=== PATIENT | female | born 1995 | race Caucasian/White ===

== ENCOUNTER 2021-02-23 09:02 | Emergency (ER) | payer OTHER, SELFPAY ==
[2021-02-23 09:08] VITALS: BP 149/92; PULSE 106; RESP 16; TEMP 36.7; O2SAT 100
--- NOTE | 2021-02-23 09:12 | ED.EAR ---
HPI - Ear Problem General Chief complaint: Ear Stated complaint: Ear Problems Time Seen by Provider: 02/23/21 09:13 Source: patient and RN notes reviewed Mode of arrival: ambulatory Limitations: no limitations History of Present Illness HPI Narrative: 25-year-old female who presents to [facility] with complaints of intermittent right ear pain for the past month, states pain has increased to bilateral ears with decreased hearing in the last 2 days. Patient states that she does have some sinus stuffiness but denies any sore throat, cough ,fevers or any sinus drainage. Patient has not taken any OTC medication for her complaints. Patient does admit to swimming in the past month 3-4 times. MD Complaint: ear pain and decreased hearing Location: bilateral Duration: intermittent Severity: moderate Discharge from ear: Reports no Associated symptoms ear: decreased hearing Treatment prior to arrival: none Related Data Home Medications Medication Instructions Recorded Confirmed norethindrone-e.estradiol-iron tablet 02/23/21 [Aurovela Fe 1.5/30 (28)] Allergies Allergy/AdvReac Type Severity Reaction Status Date / Time No Known Allergies Allergy Verified 02/23/21 09:12 Review of Systems Review of Systems: Narrative: CONSTITUTIONAL: Denies fever, chills, or sweats. EYES: Denies visual changes, redness, or discharge. ENT: Denies rhinorrhea,reports sinus stuffiness,no acute congestion or sore throat,positive for bilateral otalgia. CARDIOVASCULAR: Denies chest pain, palpitations, or edema. RESPIRATORY: Denies cough or dyspnea. GASTROINTESTINAL: Denies abdominal pain, nausea, vomiting, or diarrhea. GENITOURINARY: Denies dysuria or hematuria. SKIN: Denies rash or itching. MUSCULOSKELETAL: Denies back pain, joint pain, or myalgia. NEUROLOGIC: Denies headache, numbness, or weakness. PSYCHIATRIC: Positive for history of anxiety or depression. All systems reviewed & are unremarkable except as noted in HPI and below PMFSH Past Medical History Medical History (Updated 02/23/21 @ 13:37 by Kim Rodriguez NP) ADD (attention deficit disorder) Anxiety with depression Surgical History Surgical History (Updated 02/23/21 @ 13:36 by Kim Rodriguez NP) No history of previous surgery Family History Family History (Updated 02/23/21 @ 13:38 by Kim Rodriguez NP) Grandparent Acute myocardial infarction Mother Hypertension Social History Social History (Updated 02/23/21 @ 13:37 by Kim Rodriguez NP) Smoking status: Never smoker Alcohol intake: current Alcohol use details: social Substance use: never Living arrangements: with family Gender identity (if verbalized by the patient): Female Comments At time of signature, agree with nursing past medical, surgical, social and family history. There is no relevant family history pertinent to the presenting complaint Exam Narrative: Exam Narrative: GENERAL: Well-appearing, well-nourished, and in no acute distress. HEAD: Normocephalic, atraumatic. EYES: PERRLA and EOMI. ENT: Nares clear, no rhinorrhea or epistaxis. Mucous membranes moist.TM's noted to be covered by ear wax, cleaning with solution of peroxide and warm water completed with TM's normal but right ear canal noted to have redness, swelling and irritation. Throat pink with no lesions or exudates noted no tonsil enlargement. NECK: Supple. no lymphadenopathy CHEST: Clear to auscultation. No respiratory distress. SAO2 100% on room air HEART: Regular rate and rhythm. No murmur heard. Normal peripheral pulses. ABDOMEN: Soft, nontender, nondistended, normal active bowel sounds. EXTREMITIES: Normal range of motion. No edema. SKIN: Warm, dry, no rash. NEURO: No focal deficits. Alert and oriented x3. Course Vital Signs Vital signs: Vital Signs Temperature 36.7 C 02/23/21 09:08 Pulse Rate 106 H 02/23/21 09:08 Respiratory Rate 16 02/23/21 09:08 Blood Pressure 149/92 H 02/23/21 09:08 Pulse
== END 2021-02-23 09:42 | disposition home or self-care (01) ==
PROVIDERS: Emergency Provider Registered Nurse; PCP Physician Assistant
DX: H60.311 Diffuse otitis externa, right ear (principal); H61.23 Impacted cerumen, bilateral
CPT/HCPCS: 69209; 99203; G0463

== ENCOUNTER 2021-04-02 13:40 | Emergency (ER) | payer OTHER, SELFPAY ==
[2021-04-02 13:47] VITALS: BP 138/86; PULSE 96; RESP 14; TEMP 36.6; O2SAT 100
--- NOTE | 2021-04-02 14:34 | ED.URI ---
HPI - URI/Sore Throat General Chief Complaint: Upper Respiratory Infection Stated Complaint: Sore Throat, Fatigue and congestion Time Seen by Provider: 04/02/21 14:34 Source: patient, RN notes reviewed and old records reviewed Mode of arrival: ambulatory Limitations: no limitations History of Present Illness HPI Narrative: 25 year old female who presents to [facility] care with complaint of sore throat, fatigue, right ear fullness, head congestion and low grade fever since Wednesday 2 days. Patient reports that she has been taking Mucinex DM for her symptoms without resolution and has had both of her COVID vaccinations. She states that throat is painful especially with swallowing, rates her pain as 6/10. Patient reports also she has has positive exposure to strep at work from co-worker. MD elicited complaint: sore throat, rhinorrhea and other (right ear ) Related Data Home Medications Medication Instructions Recorded Confirmed norethindrone-e.estradiol-iron tablet 02/23/21 [Aurovela Fe 1.5/30 (28)] Allergies Allergy/AdvReac Type Severity Reaction Status Date / Time No Known Allergies Allergy Verified 02/23/21 09:12 Review of Systems Review of Systems: CONSTITUTIONAL: Reports low grade fever, chills, or sweats.afebrile at triage EYES: Denies visual changes, redness, or discharge. ENT: Positive rhinorrhea, congestion, sore throat, right ear fullness. CARDIOVASCULAR: Denies chest pain, palpitations, or edema. RESPIRATORY: Denies cough or dyspnea. GASTROINTESTINAL: Denies abdominal pain, nausea, vomiting, or diarrhea. GENITOURINARY: Denies dysuria or hematuria. SKIN: Denies rash or itching. MUSCULOSKELETAL: Denies back pain, joint pain, or myalgia. NEUROLOGIC: Denies headache, numbness, or weakness. PSYCHIATRIC: Positive anxiety or depression. All systems reviewed & are unremarkable except as noted in HPI and below [facility] Past Medical History Medical History (Updated 04/07/21 @ 09:45 by Kim Rodriguez NP) ADD (attention deficit disorder) Anxiety with depression Fracture of both wrists Surgical History Surgical History No history of previous surgery Family History Family History Grandparent Acute myocardial infarction Mother Hypertension Social History Social History Smoking status: Never smoker Alcohol intake: current Alcohol use details: social Substance use: never Gender identity (if verbalized by the patient): Female Comments At time of signature, agree with nursing past medical, surgical, social and family history. There is no relevant family history pertinent to the presenting complaint Exam Narrative: GENERAL: Well-appearing, well-nourished, and in no acute distress. HEAD: Normocephalic, atraumatic. EYES: PERRLA and EOMI. ENT: Nares with mild redness, clear rhinorrhea no epistaxis. Mucous membranes moist.TM's normal with good light reflex, throat red with no lesions or exudates no acute tonsil swelling,post nasal drainage NECK: Supple.no lymphadenopathy CHEST: Clear to auscultation. No respiratory distress.SAO2 100% on room air HEART: Regular rate and rhythm. No murmur heard. Normal peripheral pulses. ABDOMEN: Soft, nontender, nondistended, normal active bowel sounds. EXTREMITIES: Normal range of motion. No edema. SKIN: Warm, dry, no rash. NEURO: No focal deficits. Alert and oriented x3. Course Vital Signs Vital signs: Vital Signs Temperature 36.6 C 04/02/21 13:47 Pulse Rate 96 04/02/21 13:47 Respiratory Rate 14 04/02/21 13:47 Blood Pressure 138/86 04/02/21 13:47 Pulse Oximetry 100 04/02/21 13:47 Temperature 36.6 C 04/02/21 13:47 Pulse Rate 96 04/02/21 13:47 Respiratory Rate 14 04/02/21 13:47 Blood Pressure 138/86 04/02/21 13:47 Pulse Oximetry 100 04/02/21 13:47 MDM - URI
== END 2021-04-02 14:58 | disposition home or self-care (01) ==
PROVIDERS: Emergency Provider Registered Nurse; PCP Physician Assistant
DX: J02.9 Acute pharyngitis, unspecified (principal); J06.9 Acute upper respiratory infection, unspecified
CPT/HCPCS: 87880; 99213; G0463

== ENCOUNTER 2024-10-17 17:14 | Emergency (ER) | payer OTHER, SELFPAY ==
[2024-10-17 17:33] VITALS: BP 140/73; PULSE 96; RESP 16; TEMP 36.2; O2SAT 98
[2024-10-17 17:49] LABS: EDCOVIDSCREEN Negative (Negative); EDINFLUASCREEN Negative (Negative); EDINFLUBSCREEN Negative (Negative)
--- NOTE | 2024-10-17 18:13 | ED_ITS ---
HPI - General Adult General Chief complaint: Upper Respiratory Infection Stated complaint: Sinus Problem/Cough Related Data Allergies Allergy/AdvReac Type Severity Reaction Status Date / Time No Known Allergies Allergy Verified 02/23/21 09:12 [facility] Past Medical History Medical History (Updated 04/07/21 @ 09:45 by Kim Rodriguez NP) Fracture of both wrists ADD (attention deficit disorder) Anxiety with depression Surgical History Surgical History No history of previous surgery Family History Family History Grandparent Acute myocardial infarction Mother Hypertension Social History Social History Smoking status: Never smoker Alcohol intake: current Alcohol use details: social Substance use: never Living arrangements: with family Gender identity (if verbalized by the patient): Female Course Vital Signs Vital signs: Vital Signs Temperature 36.2 C L 10/17/24 17:33 Pulse Rate 96 10/17/24 17:33 Respiratory Rate 16 10/17/24 17:33 Blood Pressure 140/73 10/17/24 17:33 Pulse Oximetry 98 10/17/24 17:33 Oxygen Delivery Room Air 10/17/24 17:33 Temperature 36.2 C L 10/17/24 17:33 Pulse Rate 96 10/17/24 17:33 Respiratory Rate 16 10/17/24 17:33 Blood Pressure 140/73 10/17/24 17:33 Pulse Oximetry 98 10/17/24 17:33 Oxygen Delivery Room Air 10/17/24 17:33 Medical Decision Making Vital Signs Vital Signs: Vital Signs Temperature 36.2 C L 10/17/24 17:33 Pulse Rate 96 10/17/24 17:33 Respiratory Rate 16 10/17/24 17:33 Blood Pressure 140/73 10/17/24 17:33 Pulse Oximetry 98 10/17/24 17:33 Oxygen Delivery Room Air 10/17/24 17:33 Temperature 36.2 C L 10/17/24 17:33 Pulse Rate 96 10/17/24 17:33 Respiratory Rate 16 10/17/24 17:33 Blood Pressure 140/73 10/17/24 17:33 Pulse Oximetry 98 10/17/24 17:33 Oxygen Delivery Room Air 10/17/24 17:33 Lab Data Labs: Lab Results 10/17/24 Range/Units 17:47 POC Influenza A Ag Negative (Negative) POC Influenza B Ag Negative (Negative) POC SARS CoV-2 Ag Negative (Negative) Discharge Plan Discharge Patient Language: Yoruba Follow-up/Referrals: PHYSICIAN NOT ON STAFF,NONSTAFF [Primary Care Provider] -
--- OUTSIDE RECORDS SUMMARY | 2024-10-17 18:56 | XMS_ITS | Clinical Summary ---
Author Organization [facility] [address] Address [address] [place] [address] Phone Care Team Providers Care X Ray Technologist Name Role Phone No, Physician Primary Care Provider [phone] Allergies No known active allergies Medications albuterol HFA (PROVENTIL HFA,VENTOLIN HFA,PROAIR HFA) 90 mcg/actuation inhaler INHALE 2 PUFFS BY MOUTH EVERY 4 HOURS NEEDED FOR COUGH 06/15/2019 Active Active Problems Problem Noted Date Diagnosed Date ADD (attention deficit disorder) 03/01/2017 Overview (05/26/2024): Previously managed by psych. Discontinued Concerta around 2019. Anxiety disorder 03/01/2017 Overview (05/26/2024): Zoloft 100 mg. Discontinued around 2019. Mild asthma 01/06/2014 Overview (11/27/2016): Mild asthma Estimated Date of Delivery Comme nts Yes 12/18/2024 Based on last me nstrual period of 03/13/2024 (Exact Date) Immunizations Immunization Administration Dates Next Due DTaP 12/30/2001,08/03/1997,1996 ,1996 Hep B Vaccine 1996,1996,1996 Hib (HbOC) 08/03/1997,1996,1996 ,1996 IPV 12/30/2001,1996,1996 ,1996 MMR 12/30/2001,08/03/1997 Surgical History Surgery Date Site/Laterality Comments NO PAST SURGERIES Medical History Medical History Date Comments Chlamydia 2020 Trichomonal vaginitis 2020 Family History Medical History Relation Name Comments Heart attack Maternal Grandfather Hyperlipidemia Mother Hyperlipidemi a; Mental illness Mother Mental Illnes s -; Breast cancer Other 1 Cancer -breast ; Melanoma Other 2 Cancer -melanom a; Relation Name Status Comments Maternal Grandfather Mother Other 1 Other 2 Social History Tobacco Use Types Packs/Day Years Used Date Smoking Tobacco: Never Smokeless Tobacco: Never Tobacco Cessation:Counseling Given: Yes Alcohol Use Standard Drinks/Week Comments No 0 (1 standard drink = 0.6 oz pur e alcohol) Overall Financial Resource Strain (CARDIA) Answe r Date Recorded How hard is it for you to pa y for the very basics like food, housing, medical care, and heating? Somewhat hard 06/21/2024 Hunger Vital Sign Answer Date Recorded Within the past 12 months, y ou worried that your food would run out before you got the money to buy more. Never true 06/21/20 24 Within the past 12 months, t he food you bought just didn't last and you didn't have money to get more. Never true 06/21/2024 PRAPARE - Transportation Answer Date Re corded In the past 12 months, has l ack of transportation kept you from medical appointments or from getting medications? No 05/25 In the past 12 months, has l ack of transportation kept you from meetings, work, or from getting things needed for daily living? No 06/21/2024 Housing Stability Vital Sign Answer Osmar e Recorded In the last 12 months, was t here a time when you were not able to pay the mortgage or rent on time? No 06/21/2024 In the past 12 months, how m any times have you moved where you were living? 1 06/21/2024 At any time in the past 12 m [facility], were you homeless or living in a fci (including now)? 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 Not on file Not on file Not on file Obstetrics History Para Term AB IAB SAB Ectopic Multiple Livin g Live Births 2 0 0 0 1 0 1 0 0 0 0 Date Outcome GA Total Labor Labor/2nd/3rd Weight Sex Type Anes PTL Viri A1 A5 Name Clin 01/2024 SAB 6w0d SAB Current Summary Episode Dates Number of Fetuses Estimated Date of Delivery 05/26/2024 - Present (10/17/2024) 12/18/2024 (set by Maggie Christianson MD on 05/26/2024 based on Last Menstrual Period on 03/13/2024 (Exact Date)) Dating Summary Based On NEETA GA Diff Last Menstrual Period on 03/13/2024 (Exact Date) 12/18/2024 Working Ultrasound on 05/26/2024 12/18/2024 Same GA:10w4d Vitals Pregravid Weight Height TWG (As of 10/17/2024) Pregrav id BMI 86.6 kg (191 lb) 158.2 cm (5' 2.3 ) 0.454 kg (1 lb) 34 .62 Date GA Fund Present FHR Mvmt BP Weight Edema Alb Glu Ket Dil/ Eff/Sta 4 10w4d 118/70 86.6 kg (191 lb) 0// Notes Progress Notes - Routine Pre alta - 06/21/2024 - GA:14w2d 06/21/2024 - 14w2d - Maggie Christianson MD Reviewed OB labs and Pap which did show possible BV. Today reports she has noticed some discharge. Rx sent for flagyl. Nausea has improved. Feels rare cramping across pelvis. No VB. Precautions given. Progress Notes - Initial Pre alta - 05/26/2024 - GA:10w4d 05/26/2024 - 10w4d - Maggie Christianson MD New OB -- NEETA 12/18 by definite LMP c/w sono today. Nausea increased the last 1-2 weeks. Advised frequent small meals and B6/unisom. History of anxiety and ADD, previously managed by psych and off of medication since around 2019. Reports stable mood overall, some nervousness with h/o early miscarriage last January. Precautions given. Will monitor. OB labs ordered with Pap, GC/CT. Last Filed Vital Signs Vital Sign Reading Time Taken Comments Blood Pressure 132/78 06/21/2024 11:24 AM CDT Pulse 97 04/13/2023 10:27 AM CDT Temperature 36.6 C (97.8 F) 04/13/2023 10:27 AM CDT Respiratory Rate 16 04/13/2023 10:27 AM CDT Oxygen Saturation 98% 04/13/2023 10:27 AM CDT Inhaled Oxygen Concentration - - Weight 87.1 kg (192 lb) 06/21/2024 11:24 AM CDT Height 158.2 cm (5' 2.3 ) 05/26/2024 1:36 PM CDT Body Mass Index 34.78 05/26/2024 1:36 PM CDT Plan of Treatment Health Maintenance Due Date Last Done Comments Depression Screening 1996 Varicella Vaccines (2 of 2 - 2-dose childhood series) 03/24/2002 12/30/2001 Pneumococcal vaccine <65 (1 of 2 - PCV) 2015 Regular Well Visit/Exam 18-64 04/06/2023, 10/17/2020, 06/30/2019, Additional history exists Influenza Vaccine (#1) 2024 , 06/20/2018, 06/22/2012, Additional history exists Cervical Cancer Screening 05/26/20252023, 10/17/2020, 06/28/2018 DTaP/Tdap/Td Vaccine (8 - Td or Tdap) 06/20/2028 06/20/2018, 06/21/2008, 12/30/2001, Additional history exists Hepatitis B Screening Completed 1996 , 1996, 1996, Additional history exists HPV Vaccines Completed 04/29/2011, 09/2010, 10/22/2010 Hepatitis C Screening Completed 05/26/2024 Procedures Procedure Name Priority Date/Time Associated Diagnosis Comments HEPATITIS C ANTIBODY Routine 05/26/2024 2:18 PM CDT Encounter for supervision of other normal , first trimester 10 weeks gestation of PAP WITH REFLEX TO HIGH RISK HPV Routine 05/26/2024 11:36 AM CDT Screening for malignant neoplasm of cervix care, subsequent , first trimester from Last 3 Months or Most Recently Relevant to Health Maintenance Results * Hepatitis C antibody Blood (05/26/2024 2:18 PM CDT) Hep C Ab Nonreactive Nonreactive Comment: Interpretive Data Nonreactive: Antibodies to HCV not detected. Does NOT exclude the possibility of recent exposure to HCV. Equivocal: Equivocal for HCV antibodies. Supplemental molecular testing will be automatically performed to determine infection status in accordance with current CDC screening recommendations. Reactive: Positive for HCV antibodies. This may represent current or past HCV infection. Supplemental molecular testing will be automatically performed to determine current infection status in accordance with current CDC screening recommendations. Interpretive data was last revised on 2019. Testing performed by: [facility], [address] [place] [address]., [id number] Blood 05/26/2024 2:18 PM CDT 05/26/2024 5:32 PM CDT Maggie Christianson MD LAB MICROBIOLOGY - NERAL ORDERABLES Final Result [address] Department [place] [address] * Pap with reflex to High Risk HPV and Genotyping (Cytology Component) (05/26/2024 11:36 AM CDT) Thin prep (Pap test) 05/26/2024 11:36 AM CDT 05/26/2024 11:36 AM CDT Narrative PATHOLOGY CH - 05/30/2024 9:42 AM CDT [facility] Department of Pathology [address] [place], [place] [id number] Final Report Note to Patients: This report may contain a detailed description of human tissue sent by a health care provider to the laboratory for pathologic evaluation. The content of this report is essential for diagnosis and may provide important critical findings. This information may be unfamiliar to patients to review without a medical professional present. It is advised that the patient review this report in the presence of a health care provider who can answer questions and explain the details. Patient Name: BETH MEYER Address: [address] [place] [address]- Gender: F : 1995 (Age: 29) Service: Location: N : [id number] Hospital #: [id number] Patient Type: SPECIMEN Taken: 05/26/2024 Received: 05/26/2024 Accessioned:: 05/29/2024 Reported: 05/30/2024 Physician(s): MD Maggie Gomez MD Diagnosis: SOURCE OF SPECIMEN Imaged Thinprep Pap Test w/ Reflex HPV - Cad Design Engineer Cytologic Material: STATEMENT OF ADEQUACY - Specimen satisfactory for interpretation; endocervical/transformation zone component absent or insufficient GENERAL CATEGORIZATION: - Negative for intraepithelial lesion or malignancy INTERPRETATION: - Predominance of coccobacilli consistent with shift in vaginal mariel. Possible bacterial vaginosis SINGH Jimenez(ASCP) Report Electronically Reviewed and Signed Out By SINGH Jimenez(ASCP) 05/30/2024 09:42:54Specimen(s) Received: A: Imaged Thinprep Pap Test w/ Reflex HPV - Cad Design Engineer Cytologic Material Clinical History: Last Menstrual Period: 03/13/24 Menstrual History: Previous Negative Pap The Pap test is a screening test used to aid in the detection of cervical cancer and its precursors. It should not be the sole means by which malignant and premalignant lesions are diagnosed. Both false negative and false positive results may occur. It also has poor sensitivity for the detection of endometrial lesions and should not be used to evaluate suspected endometrial abnormalities. For these reasons it is most important to obtain Pap tests at regular intervals. The performance characteristics of some immunohistochemical stains, fluorescence in-situ hybridization tests and immunophenotyping by flow cytometry cited in this report (if any) were determined by the Surgical Pathology Department at [facility] as part of an ongoing automotive quality manager program and in compliance with federally mandated regulations drawn from the Clinical Laboratory Improvement Act of 1988 (CLIA '88). Some of these tests rely on the use of analyte specific reagents and are subject to specific labeling requirements by the US Food and Drug Administration. Such diagnostic tests may only be performed in a facility that is certified by the Department of Health and Human Services as a high complexity laboratory under CLIA '88. The FDA has determined that such clearance or approval is not necessary. This test is used for clinical purposes. It should not be regarded as investigational or for research. Nevertheless, federal rules concerning the medical use of analyte specific reagents require that the following disclaimer be attached to the report: This test was developed and its performance characteristics determined by the Surgical Pathology Department [facility]. It has not been cleared or approved by the U. S. Food and Drug Administration. Maggie Christianson MD LAB CYTOLOGY ORDERABL ES Final Result PATHOLOGY [id number] [place] [address] from Last 3 Months or Most Recently Relevant to Health Maintenance Insurance [facility] Care Teams X Ray Technologist Relationship Specialty Start Date End Date No, Physician PCP - General 06/30/19
--- OUTSIDE RECORDS SUMMARY | 2024-10-17 18:56 | XMS_ITS | Data Portability ---
Author Organization [facility] [place] Address [address] [place] [place] [address] Assessment No assessment recorded. Plan of Treatment Reminders Order Date Submit Date Provider Last Modified By Organization Details Last Modified Time Details Appointments U/S OB GROWTH 2024 09:30A M ULTRASOUND Not available Not available Not available OB ROUTINE 2024 10:00A M YURI DAMIAN MD Not available Not available Not available Lab None recorde d. Referral None recorde d. Procedures None recorde d. Surgeries None recorde d. Imaging US, obstetr ic, follow- up 2024 025 [email or web address] [place], [address], [place], [address], 08/29/2024 13:24:13 US, obstetr ic, 2nd or 3rd trimest er 2023 024 [email or web address] [place] [facility] [address], [place], [address], 08/01/2024 18:03:42 Medication Orders None recorde d. Patient TargetsNo targets recorded. Patient InstructionsNo instructions recorded. Reason for Referral None Reported. Results Created Date Observation Date Name Description Value Unit Range Abnormal Flag Note LastModifiedBy Organization Detail LastModifiedTime 07/04/20 24 07/04/2024 CULTU RE: URINE result report SEE RESULT S BELOW Test: Cultu re: Urine Speci men Sourc e: Urine - Clean Catch Speci men Type: Urine Speci men Date: 07/04 1547 Resul t Date: 07/06 0010 Resul t Statu s: Final resul t Abnor mal: No Resul ting Lab: [facility] [address] [facility] [address] Tel: CULTU RE ----- ----- ----- --- Cultu re resul t (>=3 organ isms prese nt) indic ates possi ble conta minat ion. Repea t cultu re if sympt oms indic ate. Not Available [facility] (Lab) [address], [place], [address], 07/06/2024 01:15:40 07/04/20 24 07/04/2024 drug scree n, urine Amphetamines : negati ve Not Available [place] [address], [place], [address], 07/04/2024 16:45:54 07/04/20 24 07/04/2024 drug scree n, urine Cannabinoids : negati ve Not Available [place] [address], [place], [address], 07/04/2024 16:45:54 07/04/20 24 07/04/2024 drug scree n, urine Cocaine: negati ve Not Available [place] [address], [place], [address], 07/04/2024 16:45:54 07/04/20 24 07/04/2024 drug scree n, urine Opiates: negati ve Not Available [place] [address], [place], [address], 07/04/2024 16:45:54 07/04/20 24 07/04/2024 drug scree n, urine Phenocyclidi ne: negati ve Not Available [place] [address], [place], [address], 07/04/2024 16:45:54 11/12/07/04/2024 drug scree n, urine Barbiturates : negati ve Not Available [place] [address], [place], [address], 07/04/2024 16:45:54 07/04/20 24 07/04/2024 drug scree n, urine Benzodiazepi ruben: negati ve Not Available [place] [address], [place], [address], 07/04/2024 16:45:54 07/04/20 24 07/04/2024 drug scree n, urine Ethanol: negati ve Not Available [place] [address], [place], [address], 07/04/2024 16:45:54 07/04/20 24 07/04/2024 drug scree n, urine Hallucinogen s: negati ve Not Available [place] [address], [place], [address], 07/04/2024 16:45:54 07/04/20 24 07/04/2024 drug scree n, urine Inhalants: negati ve Not Available [place] [address], [place], [address], 07/04/2024 16:45:54 07/04/20 24 07/04/2024 drug scree n, urine Anabolic Steroids: negati ve Not Available [place] [address], [place], [address], 07/04/2024 16:45:54 09/26/19 25 09/26/2024 HEMAT OCRIT (HCT) HCT 38.8 % (based on docume nted legal sex) 34.0-4 5.0 Not Available [facility] (Lab) [address], [place], [address], 09/27/2024 11:27:03 09/26/19 25 09/26/2024 HEMOG LOBIN (HGB) HGB 12.1 g/dL (based on docume nted legal sex) 11.6-1 5.4 Not Available [facility] (Lab) [address], [place], [address], 09/27/2024 11:27:04 09/26/19 25 09/26/2024 GTT - GESTA HERNÁN L SCREE N, ACOG OB glucose, 1 hour screen 169 mg/dL 70-135 high Not Available [facility] (Lab) [address], [place], [address], 09/27/2024 11:27:05 09/26/19 25 09/26/2024 HIV 1/2 ANTIG EN/AN TIBOD Y, REFLE X CONFI RMATI ON HIV antigen/anti body Nonrea ctive nonrea ctive HIV-1 antig en and HIV-1 /HIV- 2 antib odies were not detec olvin. No labor atory evide nce of HIV infec tion. Not Available [facility] (Lab) [address], [place], [address], 09/27/2024 11:27:05 09/26/19 25 09/26/2024 RPR SCREE N, REFLE X TITER /CONF IRMAT ION RPR screen Nonrea ctive nonrea ctive Not Available [facility] (Lab) [address] [place], [address], 09/27/2024 11:27:06 10/10/19 25 10/10/2024 GTT - GESTA HERNÁN L, 3 HOUR, ACOG glucose, fasting acog 79 mg/dL 70-94 Not Available [facility] (Lab) [address] [place], [address], 10/11/2024 02:12:48 10/10/19 25 10/10/2024 GTT - GESTA HERNÁN L, 3 HOUR, ACOG glucose, 1 hour acog 195 mg/dL 70-179 high Not Available [facility] (Lab) [address], [place], [address], 10/11/2024 02:12:48 10/10/19 25 10/10/2024 GTT - GESTA HERNÁN L, 3 HOUR, ACOG glucose, 2 hour acog 131 mg/dL 70-154 Not Available [facility] (Lab) [address], [place], [address], 10/11/2024 02:12:48 10/10/19 25 10/10/2024 GTT - GESTA HERNÁN L, 3 HOUR, ACOG glucose, 3 hour acog 92 mg/dL 70-139 Not Available [facility] (Lab) [address], [place], [address], 10/11/2024 02:12:48 07/04/20 24 07/04/2024 US, obste tric, limit ed No observ ation record ed. [email or web address] [place] [address], [place], [address], 07/04/2024 16:43:24 07/04/20 24 07/04/2024 US, obste tric, limit ed No observ ation record ed. rodrick Mares [address], [place], [address], 07/04/2024 23:13:55 08/01/20 24 08/01/2024 US, obste tric, 2nd or 3rd trime ster No observ ation record ed. [email or web address] [place] [address], [place], [address], 08/01/2024 12:01:31 08/01/20 24 08/01/2024 US, obste tric, 2nd or 3rd trime ster No observ ation record ed. rodrick Mares [address], [place], [address], 08/01/2024 22:44:58 08/29/19 25 08/29/2024 imagi ng/di agnos tic resul t No observ ation record ed. KIMI Suzan [address], [place], [address], 08/29/2024 14:24:02 08/29/19 25 08/29/2024 US, obste tric, follo w-up No observ ation record ed. [email or web address] [place] [address], [place], [address], 08/29/2024 13:18:01 Result Notes None recorded. Problems Name Problem SNOMED Code Status Onset Date Resolution Date Notes Provider Name and Address Organization Details Recorded Time 45579314 Active 024 Rosie hicks [facility] 15:54:04 Problem Notes None recorded. Procedures Surgical History Date Name Laterality Status Provider Name and Address Organization Details Recorded Time 05/26/2024 Date of Last Pap Smear completed Rosie Horn [facility] 07/04/2024 15:47:59 Imaging Results Imaging Date Name Status LastModified by Organiz ation Details LastModified Time 07/04/2024 US, obstetric, limited completed [email or web address] [place] [address], [place], [address], 07/04/2024 16:43:24 07/04/2024 US, obstetric, limited completed rodrick De Paze [address], [place], [address], 07/04/2024 23:13:55 08/01/2024 US, obstetric, 2nd or 3rd trimester completed [email or web address] [place] [address], [place], [address], 08/01/2024 12:01:31 08/01/2024 US, obstetric, 2nd or 3rd trimester completed rodrick Suzan [address], [place], [address], 08/01/2024 22:44:58 08/29/2024 imaging/diagno stic result completed KIMI Mares [address] [facility], [place], [address], 08/29/2024 14:24:02 08/29/2024 US, obstetric, follow-up completed [email or web address] [place] [address], [place], [address], 08/29/2024 13:18:01 Procedure Notes None recorded. Medical Equipment None Reported. Allergies No known drug allergies Medications Name Sig Start Date Stop Date Status Note LastModified by Organization Details LastModified Time acyclovir 800 mg tablet active Not Available Not Available Not Available albuterol sulfate HFA 90 mcg/actuati on aerosol inhaler Inhale 2 puffs every 4 hours by inhalation route. active Not Available Not Available No t Available Vitals Date Recorded Body height Body mass index (BMI) Body weight Systolic blood pressure Diastolic blood pressure Provider Name and Address Organization Details Last Updated DateTime 08/01/2024 157.48 cm 35.3 kg/m2 50432.32 741 g 132 mm[Hg] 77 mm[Hg] [facility] 4 12:04:16 Date Recorded Body height Body mass index (BMI) Body weight Systolic blood pressure Diastolic blood pressure Provider Name and Address Organization Details Last Updated DateTime 08/29/2024 157.48 cm 35.7 kg/m2 80361.51 215 g 140 mm[Hg] 79 mm[Hg] [facility] 5 12:41:19 Date Recorded Body height Body mass index (BMI) Body weight Systolic blood pressure Diastolic blood pressure Provider Name and Address Organization Details Last Updated DateTime 09/26/2024 157.48 cm 36.6 kg/m2 47030.47 g 132 mm[Hg] 86 mm[Hg] [facility] 5 11:25:28 Date Recorded Body weight Systolic blood pressure Diastolic blood pressure Provider Name and Address Organization Details Last Updated DateTime 10/10/2024 21023.8816 3 g 139 mm[Hg] 82 mm[Hg] Florence Antwan [facility] 10/10/2024 10:17:16 Social History Question Answer Notes LastModified by Organizat ion Details LastModified Time Tobacco Smoking Status Never Smoker Rosie Horn kurt, [facility] 07/04/2024 15:50:23 Are You Blind Or Do You Have Difficulty Seeing? No [email or web address] Information n ot available 07/04/2024 In The 14 Days Before Symptom Onset, Have You Had Close Contact With A Laboratory-confirm ed COVID-19 While That Case Was Ill? No [email or web address] Information n ot available 07/04/2024 In The 14 Days Before Symptom Onset, Have You Had Close Contact With A Person Who Is Under Investigation For COVID-19 While That Person Was Ill? No [email or web address] Information not available 07/04/2024 Have You Been To An Area Known To Be High Risk For COVID-19? No [email or web address] Information not available 07/04/2024 Are You Deaf Or Do You Have Serious Difficulty Hearing? No [email or web address] Information not available 07/04/2024 Do You Use Your Seat Belt Or Car Seat Routinely? Yes [email or web address] Information not available 07/04/2024 Are You Sexually Active? Yes [email or web address] Information not available 07/04/2024 Do You Have Smoke And Carbon Monoxide Detectors In Your Home? Yes [email or web address] Information not available 07/04/2024 Do You Use Any Illicit Or Recreational Drugs? No Information not available 07/04/2024 Do You Use Sunscreen Routinely? Yes Information not available 07/04/2024 Sex: Unknown Functional Status Question Answer Note LastModified by Organizat ion Details LastModified Time Do you have difficulty walking or climbing stairs? No [email or web address] Information not available 07/04/2024 Are you able to walk? [email or web address] Information not available 07/04/2024 Are you able to care for yourself? Yes Information not available 07/04/2024 Do you have difficulty dressing or bathing? No [email or web address] Information not available 07/04/2024 Mental Status None recorded. Family History Relationship Description Onset Age of this Age Resolved Age Notes LastModified by Organization Details LastModified Time Father No current problems or disability [email or web address] Not available 07/04 15:50:12 Mother No current problems or disability [email or web address] Not available 07/04 15:50:12 Medical History No medical history recorded. Gynecological History Statement/Question Response Abnormal Pap N Date of LMP 03/13/2024 STIs/STDs N Was last menstrual period normal Y HPV Vaccine Y Current Control Method Are cycles usually normal Y Sexually Active? Y Age of first menstrual cycle 14 Date of Last Pap Smear 05/26/2024 Sexual Problems? Y LMP Definite Obstetrics History GPAL:G 2 P 0 0 1 0 Type Value Spontaneous 1 Total 2 Past Encounters Encounter ID Performer Location Encounter Start Date Encounter Closed Date Diagnosis/Indication Diagnosis SNOMED-CT Code Diagnosis ICD10 Code Diagnosis Note [id number] [facility] [address],[place] [address] 07/04/2024 14:55:18 07/04/2024 15:44:28 Uterine size for dates discrepancy 688019248 O26.842 Z3A.16 [id number] YURI DAMIAN MD [place] [address],[place] [address] 07/04/2024 15:09:45 07/05/2024 11:22:26 Routine care 958408888 Z34.02 [id number] [facility] [address],[place] [address] 08/01/2024 10:53:41 08/01/2024 12:17:22 screening for malformation 931566864 Z36.3 Z3A.20 [id number] YURI DAMIAN MD [place] [address],[place] [address] 08/01/2024 10:54:12 08/01/2024 12:28:22 Routine care 783074095 Z34.02 - continue PNV- repeat anatomy US in 4 weeks to complete [id number] [address],[place] [address] 08/29/2024 11:32:40 08/29/2024 13:09:04 screening 432371390 Z36.2 Z3A.24 [id number] YURI DAMIAN MD [place] [address],[place] [address] 08/29/2024 11:32:55 08/30/2024 05:35:18 Transverse lie 58482725 O32.2XX9 - transverse lie at 24 weeks- repeat US at 32 weeks for presentati on and growth Gestation period, 24 weeks 611302332 Z3A.24 - continue pNV- discussed GCT and labs for next visit [id number] YURI DAMIAN MD [place] [address],[place] [address] 09/26/2024 11:12:22 09/26/2024 12:53:12 Routine care 848159370 Z34.02 - continue PNV- GCT and labs today- discussed Tdap vaccine [id number] YURI DAMIAN MD [place] [address],[place] [address] 10/10/2024 09:35:25 10/10/2024 11:21:22 Impaired glucose tolerance in 502723110 O99.810 - 3h GTT today Gestation period, 30 weeks 15610032 Z3A.30 - continue PNV Transverse lie 64363040 O32.2XX9 - transverse lie at 24 weeks- repeat US at 32 weeks for presentati on and growth Health Concerns Section Related Observation LastModified by Organization Detai ls LastModified Time None Recorded Concern Status LastModified by Organization Details LastModified Time None Recorded Advance Directives Directive None Recorded Payers Encounter Date Sequence Insurance Name Policy Number Policy Aviles Covered Member ID Aviles Member ID Guarantor Name 08/01/2024 1 [facility] (MEDICAID HMO) [id number] 0003 [facility] [id number] [facility] 08/29/2024 1 [facility] (MEDICAID HMO) [id number] 0003 [facility] [id number] [facility] 08/29/2024 1 [facility] (MEDICAID HMO) [id number] 0003 [facility] [id number] [facility] 09/26/2024 1 [facility] (MEDICAID HMO) [id number] 0003 [facility] [id number] [facility] 10/10/2024 1 [facility] (MEDICAID HMO) [id number] 0003 [facility] [id number] [facility] OBGyn Episode Ob Episode Information Episode Created Date Number of Fetuses Patient Bloodtype Patient rh Status Prepregnancy Weight lbs Domestic Partner Domestic Partner Phone Father Name School Admissions Representative Status 07/04/20 24 1 O Positive Johnny OPEN Fetus Data First Name Last Name Admitted to NICU Weight (g) Sex Living Outcome Pediatric Complications Fetus ID Race Codes Race Delivery Type [id number] Jaya Calculation Initial Jaya Date Initial Exam Date Initial Exam Provider Initial Ultrasound Date Last Menstrual Period Date Ultra Sound Weeks Gestation 12/18/2024 07/04/2024 07/04/2024 03/13/2024 16 Eighteen To Twenty Week Jaya Update Ultra Sound Date Fundal Height At Umbil Quickening Date Ultra Sound Latest Weeks Gestation Final Jaya Confirmed By Final Jaya Confirmed Date Final Jaya Date Ultra Sound Latest Days Gestation 0 [email or web address] 07/04/2024 12/19/19 25 0 Pre- Flowsheet Flowsheet Date 07/04/2024 Daniel Score Blood Edema Fundus Height Fundus Units Glucose Ketones Leukocytes Nitrite Labor Signs Protein Cervic Dilation Cervic Effacement Cervic Station Type Weight in lbs Pre/Post Dialysis Refused Weight 192.778841714769 BP Diastolic BP Location Tested BP Systolic BP Type 78 L arm 135 sitting Fetus Heart Rate Present Fetus Movement Comments [facility]. hx complicated by missed miscarriage at 6 weeks 10/2023, managed medically. This thus far uncomplicated, LR female NIPT. New OB labs wnl at [facility], transferring care now. Flowsheet Date 08/01/2024 Daniel Score Blood Edema Fundus Height Fundus Units Glucose Ketones Leukocytes Nitrite Labor Signs Protein Cervic Dilation Cervic Effacement Cervic Station Type Weight in lbs Pre/Post Dialysis Refused BP Diastolic BP Location Tested BP Systolic BP Type Fetus Heart Rate Present Fetus Movement Comments Flowsheet Date 08/01/2024 Daniel Score Blood Edema Fundus Height Fundus Units Glucose Ketones Leukocytes Nitrite Labor Signs Protein Cervic Dilation Cervic Effacement Cervic Station neg none Type Weight in lbs Pre/Post Dialysis Refused 193.29844901007 BP Diastolic BP Location Tested BP Systolic BP Type 77 L arm 132 sitting Fetus Heart Rate Present A Present Fetus Movement A Yes Comments Doing well, good movem ent. No cramping or bleeding. Having some round ligament and sciatic pain, discussed conservative measures. Anatomy US today, EFW 30%, all normal aside from missing RVOT and LVOT views. Will repeat in 4 weeks. RTC 4 weeks. Flowsheet Date 08/29/2024 Daniel Score Blood Edema Fundus Height Fundus Units Glucose Ketones Leukocytes Nitrite Labor Signs Protein Cervic Dilation Cervic Effacement Cervic Station Type Weight in lbs Pre/Post Dialysis Refused BP Diastolic BP Location Tested BP Systolic BP Type Fetus Heart Rate Present Fetus Movement Comments Flowsheet Date 08/29/2024 Daniel Score Blood Edema Fundus Height Fundus Units Glucose Ketones Leukocytes Nitrite Labor Signs Protein Cervic Dilation Cervic Effacement Cervic Station neg none Type Weight in lbs Pre/Post Dialysis Refused 195.144978770689 BP Diastolic BP Location Tested BP Systolic BP Type 79 L arm 140 sitting Fetus Heart Rate Present A 155 Fetus Movement A Yes Comments Patient c/o of slight lower crampings. Good movement. No bleeding. Repeat anatomy complete and normal. EFW 33%, HC 7%; all other measurements wnl. Transverse lie. Will repeat growth US at 32 weeks to reevaluate growth and position. Discussed GCT and labs for next visit. RTC 4 weeks. Flowsheet Date 09/26/2024 Daniel Score Blood Edema Fundus Height Fundus Units Glucose Ketones Leukocytes Nitrite Labor Signs Protein Cervic Dilation Cervic Effacement Cervic Station neg none Type Weight in lbs Pre/Post Dialysis Refused Weight 200.691774043850 BP Diastolic BP Location Tested BP Systolic BP Type 86 L arm 132 sitting Fetus Heart Rate Present A 150 Fetus Movement A Yes Comments Good movement. No cram ping or bleeding. GCT and labs today. Discussed tdap vaccine. RTC 2 weeks. Flowsheet Date 10/10/2024 Daniel Score Blood Edema Fundus Height Fundus Units Glucose Ketones Leukocytes Nitrite Labor Signs Protein Cervic Dilation Cervic Effacement Cervic Station Type Weight in lbs Pre/Post Dialysis Refused 199.549102615912 BP Diastolic BP Location Tested BP Systolic BP Type 82 L arm 139 sitting Fetus Heart Rate Present A 150 Fetus Movement A Yes Comments Good movement. Failed 1h GCT, completing 3h GTT today. Discussed growth US in 2 weeks with presentation. RTC 2 weeks. Menstrual History Last Menstrual Date Menses Monthly On Bcp Conception Prior Menses Frequency Hcg Plus Date Menarche Onset Age 0703/13/2024 Delivery Information Delivery Date Delivery Type Labor Anesthesia Weeks Gestation Incision Type Labor Labor Length Hrs Delivered By Post Complications Tubal Sterilization Discharge Date Comments Discharge Information Feeding Method Contraceptive Method Maternal HG B and HCT Levels Ob Episode Information Episode Created Date Number of Fetuses Patient Bloodtype Patient rh Status Prepregnancy Weight lbs Domestic Partner Domestic Partner Phone Father Name School Admissions Representative Status 07/04/20 24 1 CLOSED Fetus Data First Name Last Name Admitted to NICU Weight (g) Sex Living Outcome Pediatric Complications Fetus ID Race Codes Race Delivery Type , Spontane ous [id number] Jaya Calculation Initial Jaya Date Initial Exam Date Initial Exam Provider Initial Ultrasound Date Last Menstrual Period Date Ultra Sound Weeks Gestation 0 Eighteen To Twenty Week Jaya Update Ultra Sound Date Fundal Height At Umbil Quickening Date Ultra Sound Latest Weeks Gestation Final Jaya Confirmed By Final Jaya Confirmed Date Final Jaya Date Ultra Sound Latest Days Gestation 0 0 Menstrual History Last Menstrual Date Menses Monthly On Bcp Conception Prior Menses Frequency Hcg Plus Date Menarche Onset Age Delivery Information Delivery Date Delivery Type Labor Anesthesia Weeks Gestation Incision Type Labor Labor Length Hrs Delivered By Post Complications Tubal Sterilization Discharge Date Comments 4 Discharge Information Feeding Method Contraceptive Method Maternal HG B and HCT Levels
--- OUTSIDE RECORDS SUMMARY | 2024-10-17 18:56 | XMS_ITS | Referral Summary ---
Author Organization [facility] [address] Address [address] [place] [address] Phone Care Team Providers Care Animal Care Attendant Name Role Phone No, Physician Primary Care Provider [phone] Allergies No known active allergies Medications albuterol [...] 08/03/1997,1996,1996 ,1996 IPV 12/30/2001,1996,1996 ,1996 MMR 12/30/2001,08/03/1997 Social History Tobacco Use Types Packs/Day Years [...] any time in the past 12 m [facility], were you homeless or living in a chcf (including now)? 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 Testing performed by: [facility], [address] [place] [address], [place]., [address] Blood 05/26/2024 2:18 PM CDT 05/26/2024 5:32 PM CDT us Maggie Christianson MD LAB MICROBIOLOGY - GE NERAL ORDERABLES Final Result [facility] [address] Department [place] [address] * Pap with reflex to High Risk HPV and Genotyping (Cytology Component) (05/26/2024 11:36 AM CDT) Thin prep (Pap test) 05/26/2024 11:36 AM CDT 05/26/2024 11:36 AM CDT Narrative PATHOLOGY CH - 05/30/2024 9:42 AM CDT [facility] Department of Pathology [address] [place], [place] [id number] Final Report Note to Patients: This report [...] the details. Patient Name: BETH MEYER Address: [address] [place] [address]- Gender: F : 1995 (Age: 29) Service: Location: [facility] #: [id number] Patient Type: SPECIMEN Taken: 05/26/2024 Received: 05/26/2024 Accessioned:: 05/29/2024 Reported: 05/30/2024 Physician(s): MD Maggie Gomez MD Diagnosis: SOURCE OF SPECIMEN Imaged Thinprep Pap Test w/ Reflex HPV - Tin Cutter Cytologic Material: STATEMENT OF ADEQUACY - Specimen satisfactory for interpretation; endocervical/transformation zone component absent or insufficient GENERAL CATEGORIZATION: - Negative for intraepithelial lesion or malignancy INTERPRETATION: - Predominance of coccobacilli consistent with shift in vaginal mariel. Possible bacterial vaginosis SINGH Jimenez(ASCP) Report Electronically Reviewed and Signed Out By SINGH Jimenez(ASCP) 05/30/2024 09:42:54Specimen(s) Received: A: Imaged Thinprep Pap Test w/ Reflex HPV - Tin Cutter Cytologic Material Clinical History: Last Menstrual Period: 07/22/24 Menstrual History: Previous Negative Pap The Pap [...] determined by the Surgical Pathology Department at [facility] as part of an ongoing quality nurse program and in compliance with federally mandated [...] characteristics determined by the Surgical Pathology Department [facility]. It has not been cleared or approved by the U. S. Food and Drug Administration. Maggie Christianson MD LAB CYTOLOGY ORDERABL ES Final Result PATHOLOGY [address] [place] [address] from Last 3 Months or Most Recently Relevant to Health Maintenance Insurance [facility] Care Teams Animal Care Attendant Relationship Specialty Start Date End Date No, Physician PCP - General 06/30/19
--- OUTSIDE RECORDS SUMMARY | 2024-10-17 18:56 | XMS_ITS | Encounter Summary ---
Author Organization [facility] Address [address] [place] [address] Phone Care Team Providers Care Operational Meteorologist Name Role Phone Debo Robertson APRN, CNP Primary Care Provid er Encounter Details Date Type Department Care Team (Late Contact Info) Description 01/05/2024 Telephone [facility] [address] [place] [address] Provider, None [place] Social History Tobacco Use Types Packs/Day Years Used Date Smoking Tobacco: Never Smokeless Tobacco: Never Alcohol Use Standard Drinks/Week Comments No 0 (1 standard drink = 0.6 oz pur e alcohol) PHQ-2 Answer Date Recorded Total Score - Questions 1-9 0 08/24 Sexually Active Control Partners Comments Yes Oral Contraceptive Male Comments No Sex and Gender Information Value Date Recorded Sex Assigned at Not on file Legal Sex Female 9:22 AM CDT Gender Identity Not on file Sexual Orientation Not on file documented as of this encounter Plan of Treatment Upcoming Encounters Date Type Department Care Team (Late Contact Info) Description 02/13/2025 10:30 AM CDT Office Visit [facility] - Family Medicine - [place] [address] [place] [address] Debo Robertson APRN, CNP [address] [phone] documented as of this encounter Visit Diagnoses Not on filedocumented in this encounter Additional Health Concerns Assessment Noted Time PHQ-9 Depression Total Score: 0 09/12/19 21 1:00 PM [employer] NI[employer] INSPECTOR documented as of this encounter Care Teams Operational Meteorologist Relationship Specialty Start Date End Date Debo Robertson APRN, GAS METER REPAIRER #[address] [phone] PCP - General Advanced Practice Nurse 01/31/24 documented as of this encounter
--- OUTSIDE RECORDS SUMMARY | 2024-10-17 18:56 | XMS_ITS | Clinical Summary ---
Author Organization [facility] Address [address] [place] [address] Phone Care Team Providers Care Thermostat Repairer Name Role Phone Debo Robertson APRN, CNP Primary Care Provid er Allergies No known active allergies Medications albuterol 108 (90 Base) MCG/ACT Aerosol Solution 07/21/2024 Ac tive Active Problems Problem Noted Date Diagnosed Date ADD (attention deficit disorder) 03/01/2017 Estimated Date of Delivery Comme nts Yes 12/18/2024 Encounters Date Type Department Care Team Description 09/04/2024 8:15 AM RECREATION ASSISTANT Office Visit [facility] - [facility] [address] [place] [address] Debo Robertson APRN, CNP Herpes zoster without complication (Primary Dx); Second trimester Discharge Disposition: Discharged to home or Selfcare 09/04/2024 Travel from Last 3 Months Immunizations Immunization Administration Dates Next Due Covid-19, Mrna, Lnp-s, Pf, 3 0 Mcg/0.3 Ml Dose (Science) 11/21/2020 DTAP VACCINE 12/30/2001, 7,1996,09/18,1996 Hepatitis A Vaccine, Pediatric/adolescent, 2 Dose Schedule 10/21/2009 Hepatitis A Vaccine,unspecif ied Formulation 06/21/2008 Hepatitis B Vaccine 1996,1996,1995 Hepatitis B Vaccine,unspecif ied Formulation 1996,1996,1996 Hib (HbOC) 08/03/1997, 7,1996,07/17 Hib Vaccine,unspecified Formulation 1996,1 09/16/1995 Human Papillomavirus Vaccine (HPV), quadrivalent 04/29/2011,12/22/2010,10/22/2010 Inactivated Polio Vaccine 12/30/2001,,1996,07/17 Influenza Vaccine 06/22/2012 Influenza Vaccine, Quadrivalent, PF 09/12/2020,1 Influenza Vaccine,unspecifie d Formulation 06/21/2008 MMR Vaccine 12/30/2001,08/03/1997 Meningococcal Vaccine 06/21/2008 OPV 1996,1996,1996 TB Skin Test 09/12/2020 TDAP Vaccine 06/20/2018,06/21/2008 Varicella Vaccine Live 12/30/2001 Family History Medical History Relation Name Comments Drug Abuse Brother 1 overdose No Known Problems Brother 2 No Known Problems Father No Known Problems Maternal Grandfather No Known Problems Maternal Grandmother No Known Problems Mother No Known Problems Paternal Grandfather Dementia Paternal Grandmother Relation Name Status Comments Brother 1 Brother 2 Alive Father Alive Maternal Grandfather Maternal Grandmother Alive Mother Alive Paternal Grandfather Paternal Grandmother Social History Tobacco Use Types Packs/Day Years Used Date Smoking Tobacco: Never Smokeless Tobacco: Never Tobacco Cessation:Counseling Given: No Alcohol Use Standard Drinks/Week Comments No 0 (1 standard drink = 0.6 oz pur e alcohol) PHQ-2 Answer Date Recorded Total Score - Questions 1-9 0 08/24 Sexually Active Control Partners Comments Yes None Male Estimated Date of Delivery Comme nts Yes 12/18/2024 Sex and Gender Information Value Date Recorded Sex Assigned at Not on file Legal Sex Female 9:22 AM CDT Gender Identity Not on file Sexual Orientation Not on file Last Filed Vital Signs Vital Sign Reading Time Taken Comments Blood Pressure 136/74 09/04/2024 8:23 AM RECREATION ASSISTANT Pulse 90 09/04/2024 8:23 AM RECREATION ASSISTANT Temperature 36.5 C (97.7 F) 09/04/2024 8:23 AM RECREATION ASSISTANT Respiratory Rate 16 09/04/2024 8:23 AM RECREATION ASSISTANT Oxygen Saturation 98% 09/04/2024 8:23 AM RECREATION ASSISTANT Inhaled Oxygen Concentration - - Weight 89.8 kg (198 lb) 09/04/2024 8:23 AM RECREATION ASSISTANT Height 158.8 cm (5' 2.5 ) 09/04/2024 8:23 AM RECREATION ASSISTANT Body Mass Index 35.64 09/04/2024 8:23 AM RECREATION ASSISTANT Plan of Treatment Upcoming Encounters Date Type Department Care Team (Late st Contact Info) Description 02/13/2025 10:30 AM CDT Office Visit [facility] - Family Medicine - [place] [address] [place] [address] Debo Robertson, SHELIA, KITCHEN HELP HANDYMAN [address] [phone] Health Maintenance Due Date Last Done Comments Pap Smear 10/07/2023 10/07/2020 Influenza Immunization (#1) 04/23/2024/08/2020, 06/20/2018, 06/22/2012, Additional history exists DTaP/Tdap/Td Immunization (8 - Td or Tdap) 06/20/2028 06/20/2018, 06/21/2008, 12/30/2001, Additional history exists Td Immunization Every 10 Years (Adults With 1 Tdap) 06/20/2028 06/20/2018, 06/21/2008 Hepatitis B Immunization Completed 997, 1996, 1996, Additional history exists Meningococcal Immunization (ACWY) Aged Out 06/21/2008 No longer eligible based on patient's age to complete this topic Human Papillomavirus (HPV) Immunization Discontinued 04/29/2011, 12/22/2010, 10/22/2010 SARS-COV-2 Immunization Discontinued 12/19/2020, 11/21 Hepatitis C Virus (HCV) Screening Discontinued Pneumococcal Immunization Combined Aged Out No longer eligible based on patient's age to complete this topic Respiratory Syncytial Virus (RSV) Immunization (Adult) (No Doses Required) Completed Rotavirus Immunization Aged Out No lo nger eligible based on patient's age to complete this topic Insurance MEDICAID [place] Care Teams Thermostat Repairer Relationship Specialty Start Date End Date Debo Robertson APRN, [facility]WAS[facility] [address] [phone] PCP - General Advanced Practice Nurse 01/31/24
== END 2024-10-17 18:29 | disposition left against medical advice (07) ==
LOC: EXPBETH 17:20
PROVIDERS: Emergency Provider Nurse Practitioner
DX: R05.9 Cough, unspecified (principal); Z20.822 Contact with and (suspected) exposure to COVID-19
CPT/HCPCS: 87426; 87804; 99199

== ENCOUNTER 2024-12-12 10:54 | Inpatient (IN) | payer OTHER, SELFPAY ==
[2024-12-12] VITALS (21 sets, daily range): BP systolic 93–150; BP diastolic 57–95; PULSE 94–124; TEMP 36.6–36.9; BMI 38.0
[2024-12-12 12:43] LABS: Basophils Percent Auto 0.2 % (0.2-1.2); Eosinophils Percent Auto 0.2 % (0-4.4); Hematocrit 39.3 % (37.0-47.0); Hemoglobin 12.4 g/dL (12.0-15.0); Immature Granulocyte Absolute 0.04 K/mm3 (0.00-0.031); Immature Granulocyte Percent A 0.4 % (0-0.5); Lymphocytes Percent Auto 16.8 % (18.3-44.2); Mean Corpuscular HGB Conc 31.6 g/dl (32-36); Mean Corpuscular Hemoglobin 26.7 pg (26-34); Mean Corpuscular Volume 84.7 fl (80-100); Mean Platelet Volume 12.1 fl (7.4-10.4); Monocytes Absolute Auto 0.6 K/mm3 (0.1-0.6); Monocytes Percent Auto 5.2 % (2.6-8.5); Neutrophils Absolute Auto 8.8 K/mm3 (1.3-6.7); Neutrophils Percent Auto 77.2 % (45.5-73.1); Platelet Count Result 193 k/mm3 (150-375); Red Blood Count 4.64 M/mm3 (4.2-5.4); Red Cell Distribution Width 16.1 % (11.5-14.5); White Blood Count 11.3 K/mm3 (4.5-10.0)
--- NOTE | 2024-12-12 13:03 | LDADM ---
This patient, Beth Meyer, was admitted to Labor/Delivery/Recovery 106 on 12/12/24 at 10:54. Plans for labor, pain management and were discussed with patient. Patient/family oriented to hospital policies and general routines including ID bracelet, bed and alarms, visiting hours, pain management, procedures, bathroom and other care routines, personal items, smoking policy, room service/diet and guest tray routines, infant security routines, and visiting hours. Patient/Family are encouraged to report perceived risks to care and to ask questions if they do not understand what they are told or what they should do. See OBIX for further documentation.
[2024-12-12 13:04] LABS: Alanine Aminotransferase 13 U/L (6-35); Albumin Level 3.4 g/dL (3.5-5.1); Alkaline Phosphatase 187 U/L (38-126); Anion Gap 8 mmol/L (4-12); Aspartate Amino Transferase 17 U/L (14-36); Bilirubin,Total 0.7 mg/dL (0.2-1.3); Blood Urea Nitrogen 9 mg/dL (7-17); Calcium 8.7 mg/dL (8.4-10.2); Carbon Dioxide 18 mmol/L (22-30); Chloride 108 mmol/L (98-107); Estimated Glomerular Filt Rate > 60; Glucose 94 mg/dL (65-110); Potassium 4.1 mmol/L (3.4-5.0); Sodium 134 mmol/L (137-145); Uric Acid 4.7 mg/dL (2.5-7.5)
[2024-12-12] MEDS: AMPICILLIN 2 GM/NS 100 ML 2 GM/100 ML BAG IVPB (13:10)
[2024-12-12] MEDS: LACTATED RINGERS 1,000 ML 125 ML IV CONT (13:25)
--- NOTE | 2024-12-12 14:00 | PM.IMHP ---
H&P: HPI History of Present Illness Date/Time: 12/12/24 14:00 Chief Complaint: pt arrived to LD for evaluation of elevated blood pressure, also pt c/o leaking of fluid on the ride over. hx obesity, GBS positive. pt denies headache, visual changed, epigastric pain. Review of Systems Review of Systems: All systems reviewed & are unremarkable except as noted in HPI and below PMFSH Past Medical History Medical History (Updated 12/12/24 @ 14:05 by Doris Ortiz CNM) Fracture of both wrists ADD (attention deficit disorder) Anxiety with depression Surgical History Surgical History No history of previous surgery Family History Family History Grandparent Acute myocardial infarction Mother Hypertension Social History Social History Smoking status: Never smoker Alcohol intake: current Alcohol use details: social Substance use: never Do You Feel Safe in your Home?: Yes Lack of Transportation: No Lack of Food: Never True Current Housing: I Have Housing Concerned About Future Housing: No Difficulty Paying Gas/Electric Bills: No Difficulty Paying for Meds: No Currently Unemployed: No Education: Associate Degree Difficulty w/ Childcare or Family Care: No Living arrangements: with family Gender identity (if verbalized by the patient): Female Spiritual care concerns: No Meds Home Medications and Allergies Home Medications ?Medication ?Instructions ?Recorded ?Confirmed ?Type vit no.95-ferrous 1 tablet PO DAILY 11/21/24 12/12/24 History fumarate 28 mg-folic acid 800 mcg tablet () Allergies Allergy/AdvReac Type Severity Reaction Status Date / Time No Known Allergies Allergy Verified 11/21/24 13:54 Vital Signs Vital Signs - 24 hr 12/12/24 11:53 12/12/24 12:33 12/12/24 12:45 Pulse Rate 113 H 124 H 118 H Blood Pressure 147/87 H 145/69 H 148/82 H Oxygen Delivery 12/12/24 13:00 12/12/24 13:01 12/12/24 13:15 Pulse Rate 116 H 111 H Blood Pressure 150/95 H 146/72 H Oxygen Delivery Room Air Exam Const: General: cooperative, healthy appearing and comfortable Chest: Chest palpation & inspection: normal inspection of the chest Resp: Effort & Inspection: normal respiratory effort Auscultation: clear to auscultation bilaterally Cardio: Rate: regular rate Rhythm: regular rhythm GI: Inspection: normal to inspection : Other: SVE FT/thick/-3, Back/Spine/Pelvis: Back: no CVA tenderness Skin: General skin exam: normal color Neuro: General: patient oriented x3 Extrem: General: normal to inspection Psych: Appearance: grossly normal H&P: Results Labs Labs: Short CBC 12/12/24 Range/Units 12:27 WBC 11.3 H (4.5-10.0) K/mm3 Hgb 12.4 (12.0-15.0) g/dL Hct 39.3 (37.0-47.0) % Plt Count 193 (150-375) k/mm3 BMP 12/12/24 12/12/24 12:37 12:38 Sodium 134 L Cancelled Potassium 4.1 Cancelled Chloride 108 H Cancelled Carbon Dioxide 18 L Cancelled BUN 9 Cancelled Creatinine 0.55 L Cancelled Glucose 94 Cancelled Calcium 8.7 Cancelled Liver Function 12/12/24 12/12/24 Range/Units 12:37 12:38 Total Bilirubin 0.7 Cancelled (0.2-1.3) mg/dL AST 17 Cancelled (14-36) U/L ALT 13 Cancelled (6-35) U/L Alkaline Phosphatase 187 H Cancelled (38-126) U/L Albumin 3.4 L Cancelled (3.5-5.1) g/dL Assessment and Plan Assessment and plan (1) SROM (spontaneous rupture of membranes): Status: Acute Assessment and Plan: co-manage with dr. mccullough anticipate vaginal delivery gbs positive
[2024-12-12] MEDS: miSOPROStol 25 MCG TABLET 50 MCG BUCCAL ×3 (14:11→21:58)
[2024-12-12 14:50] LABS: Syphilis IgG/IgM Antibody Negative (Negative)
[2024-12-12 14:57] LABS: HIV 1/2 Ab P24 Ag Result Negative (Negative)
[2024-12-12] MEDS: AMPICILLIN 1 GM/NS 50 ML 1 GM/50 ML BAG IVPB ×2 (17:53→21:58)
[2024-12-13] VITALS (277 sets, daily range): BP systolic 74–157; BP diastolic 21–137; PULSE 71–201; RESP 17–26; TEMP 36.2–38; O2SAT 83–100
[2024-12-13] MEDS: AMPICILLIN 1 GM/NS 50 ML 1 GM/50 ML BAG IVPB ×5 (02:04→19:58)
[2024-12-13] MEDS: miSOPROStol 25 MCG TABLET 50 MCG BUCCAL (02:30)
[2024-12-13] MEDS: OXYTOCIN 30 UNITS/NS 500 ML 30 UNITS/500 ML BAG IV CONT (06:45)
[2024-12-13] MEDS: LACTATED RINGERS 1,000 ML 125 ML IV CONT ×3 (08:15→17:57)
--- NOTE | 2024-12-13 08:46 | WPDANESEPPF ---
Anes - Initial Pre Proc Eval Procedure: labor epidural Date/Time: 12/13/24 08:46 Surgeon: Jesse Chiu MD Pre Op Diagnosis: labor pain Pre Op Diagnosis: Leaking Patient Data Age: 29 Gender: F Height: 1.57 m Weight: 94.5 kg Last Vital Signs Temp 36.7 C 12/13/24 06:34 Pulse 111 H 12/13/24 08:45 BP 122/63 12/13/24 08:45 Pulse Ox 98 12/13/24 08:41 O2 Del Method Room Air 12/12/24 13:01 Allergies Allergy/AdvReac Type Severity Reaction Status Date / Time No Known Allergies Allergy Verified 11/21/24 13:54 Home Medications ?Medication ?Instructions ?Recorded ?Confirmed ?Type vit no.95-ferrous 1 tablet PO DAILY 11/21/24 12/12/24 History fumarate 28 mg-folic acid 800 mcg tablet () Laboratory Tests 12/12/24 12/12/24 12/12/24 12:27 12:37 12:38 WBC 11.3 H K/mm3 (4.5-10.0) RBC 4.64 M/mm3 (4.2-5.4) Hgb 12.4 g/dL (12.0-15.0) Hct 39.3 % (37.0-47.0) MCV 84.7 fl (80-100) MCH 26.7 pg (26-34) MCHC 31.6 L g/dl (32-36) RDW 16.1 H % (11.5-14.5) Plt Count 193 k/mm3 (150-375) MPV 12.1 H fl (7.4-10.4) Immature Gran % (Auto) 0.4 % (0-0.5) Neut % (Auto) 77.2 H % (45.5-73.1) Lymph % (Auto) 16.8 L % (18.3-44.2) Fajardo % (Auto) 5.2 % (2.6-8.5) Eos % (Auto) 0.2 % (0-4.4) Baso % (Auto) 0.2 % (0.2-1.2) Lymph # (Auto) 1.90 K/mm3 (0.9-3.2) Fajardo # (Auto) 0.6 K/mm3 (0.1-0.6) Eos # (Auto) 0.0 K/mm3 (0-0.3) Baso # (Auto) 0.0 K/mm3 (0.0-0.1) Abs Immat Gran (auto) 0.04 H K/mm3 (0.00-0.031) Absolute Neuts (auto) 8.8 H K/mm3 (1.3-6.7) Absolute Nucleated RBC 0.000 K/mm3 (0.0-0.012) Nucleated RBC % 0.0 % (0.0-0.2) Sodium 134 L mmol/L Cancelled (137-145) Potassium 4.1 mmol/L Cancelled (3.4-5.0) Chloride 108 H mmol/L Cancelled (98-107) Carbon Dioxide 18 L mmol/L Cancelled (22-30) Anion Gap 8 mmol/L Cancelled (4-12) BUN 9 mg/dL Cancelled (7-17) Creatinine 0.55 L mg/dL Cancelled (0.7-1.0) Estim Creat Clear Calc Not Reportable Cancelled Estimated GFR > 60 Cancelled (59 - ) Glucose 94 mg/dL Cancelled (65-110) Uric Acid 4.7 mg/dL Cancelled (2.5-7.5) Calcium 8.7 mg/dL Cancelled (8.4-10.2) Total Bilirubin 0.7 mg/dL Cancelled (0.2-1.3) AST 17 U/L Cancelled (14-36) ALT 13 U/L Cancelled (6-35) Alkaline Phosphatase 187 H U/L Cancelled (38-126) Total Protein 6.0 L g/dL Cancelled (6.3-8.2) Albumin 3.4 L g/dL Cancelled (3.5-5.1) Syphilis IgG/IgM Ab Negative (Negative) HIV 1&2 Ab/P24 Ag 4thGn Negative (Negative) Blood Type O Positive Antibody Screen Negative Patient hx anesthesia problems: none Family hx anesthesia problems: none Results Review: All pre-operative results and documents have been reviewed as part of the pre-operative evaluation. [facility] Past Medical History Medical History (Updated 12/13/24 @ 08:47 by Jesus Ramirez DO) Hypertension Fracture of both wrists ADD (attention deficit disorder) Anxiety with depression Surgical History Surgical History No history of previous surgery Family History Family History Grandparent Acute myocardial infarction Mother Hypertension Social History Social History Smoking status: Never smoker Alcohol intake: current Alcohol use details: social Substance use: never Do You Feel Safe in your Home?: Yes Lack of Transportation: No Lack of Food: Never True Current Housing: I Have Housing Concerned About Future Housing: No Difficulty Paying Gas/Electric Bills: No Difficulty Paying for Meds: No Currently Unemployed: No Education: Associate Degree Difficulty w/ Childcare or Family Care: No Living arrangements: with family Gender identity (if verbalized by the patient): Female Spiritual care concerns: No Anes - Eval Final PreProcedure Day of Procedure 12/13/24 08:46 Patient weight: obese Neurological: alert and oriented ASA classification: III Emergent: no Anesthetic plan: proceed Anesthesia type and monitoring: regional epidural and standard monitoring Results Review: All pre-operative results and documents have been reviewed as part of the pre-operative evaluation. Informed Consent: The patient's anesthetic plan and its attendant risks and benefits were discussed with the patient/family/POA. Questions were solicited and answers provided to the satisfaction of the patient/family/POA.
[2024-12-13] MEDS: DEXTROSE 5%/LACTATED RINGERS 1,000 ML 125 ML IV CONT (18:40)
[2024-12-13] MEDS: LACTATED RINGERS 1,000 ML 999 ML IV CONT (20:38)
--- NOTE | 2024-12-13 20:44 | P.HP_ITS ---
H&P: HPI History of Present Illness Date/Time: 12/13/24 20:44 Chief Complaint: Term gestation, gestational hypertension Narrative: 29-year-old female at 39 weeks gestation with gestational hypertension. Induction of labor. Developed nonreassuring status, nonreassuring and heart tracing early in the 1st stage of labor. To proceed with delivery. She understands risks, benefits, and alternatives. She has completed the informed consent process and is ready to proceed. The patient understands the details of the procedure. The procedure has been explained in detail. She understands the risks. She understands that injuries may occur that result in hospitalization, more surgery, and severe illness. She understands risk of hemorrhage and infection. She denies any chest pain or sh ortness of breath. She denies any nausea, vomiting, fever, chills. Review of Systems Review of Systems: All systems reviewed & are unremarkable except as noted in HPI and below Constitutional: Constitutional: Denies chills, Denies fatigue, Denies fever(s) and Denies weakness Eyes: Eyes: Denies blurry vision, Denies change in vision, Denies loss of peripheral vision, Denies loss of vision, Denies other visual disturbances and Denies eye pain ENT: Denies vertigo, Denies dizziness, Denies hearing loss, Denies mouth pain, Denies nasal obstruction, Denies neck mass and Denies neck pain Cardiovascular: Cardiovascular: Denies chest pain, Denies diaphoresis, Denies syncope, Denies leg edema and Denies dyspnea Respiratory: Respiratory: Denies chest congestion, Denies cough, Denies hemoptysis, Denies dyspnea and Denies wheezing Gastrointestinal: Gastrointestinal: Denies abdominal pain, Denies constipation, Denies diarrhea, Denies nausea and Denies vomiting Genitourinary: Genitourinary: Denies hematuria, Denies change in libido, Denies nocturia, Denies genital lesions, Denies flank pain and Denies urinary urgency Musculoskeletal: Musculoskeletal: Denies abnormal gait, Denies back pain, Denies myalgias, Denies arthralgias, Denies joint swelling, Denies muscle weakness and Denies neck pain Integumentary/Breasts: Skin/Breast: Denies swelling, Denies breast pain, Denies breast mass, Denies dry skin, Denies nipple discharge, Denies unusual bruising and Denies jaundice Neurologic: Denies Neuro-related abnormal movements, Denies Abnormal speech present, Denies abnormal gait, Denies behavioral changes, Denies confusion, Denies vertigo, Denies dizziness, Denies syncope, Denies loss of vision, Denies memory loss, Denies convulsions and Denies weakness Psychiatric: Psychiatric: Denies abnormal sleep pattern, Denies behavioral changes, Denies change in libido, Denies confusion, Denies depression, Denies anhedonia and Denies memory loss Endocrine: Endocrine: Reports no additional endocrine complaints, Denies change in libido and Denies fatigue Hematologic/Lymphatic: Hematologic/Lymphatic: Reports no additional hematologic/lymphatic complaints Allergic/Immunologic: Allergic/Immunologic: Reports no additional allergic/immunologic complaints and Denies wheezing PMFSH Past Medical History Medical History (Updated 12/13/24 @ 20:49 by Rudi Francis MD) Hypertension Fracture of both wrists ADD (attention deficit disorder) Anxiety with depression Surgical History Surgical History No history of previous surgery Family History Family History Grandparent Acute myocardial infarction Mother Hypertension Social History Social History Smoking status: Never smoker Alcohol intake: current Alcohol use details: social Substance use: never Do You Feel Safe in your Home?: Yes Lack of Transportation: No Lack of Food: Never True Current Housing: I Have Housing Concerned About Future Housing: No Difficulty Paying Gas/Electric Bills: No Difficulty Paying for Meds: No Currently Unemployed: No Education: Associate Degree Difficulty w/ Childcare or Family Care: No Living arrangements: with family Gender identity (if verbalized by the patient): Female Spiritual care concerns: No Meds Home Medications and Allergies Home Medications ?Medication ?Instructions ?Recorded ?Confirmed ?Type vit no.95-ferrous 1 tablet PO DAILY 11/21/24 12/12/24 History fumarate 28 mg-folic acid 800 mcg tablet () Allergies Allergy/AdvReac Type Severity Reaction Status Date / Time No Known Allergies Allergy Verified 11/21/24 13:54 Vital Signs Vital Signs - 24 hr 12/12/24 21:00 12/12/24 22:30 12/12/24 23:30 Temperature Pulse Rate 97 109 H 94 Blood Pressure 130/69 123/65 142/83 H Pulse Oximetry Oxygen Delivery 12/13/24 00:00 12/13/24 00:30 12/13/24 01:00 Temperature Pulse Rate 92 105 H 94 Blood Pressure 144/101 H 130/62 140/97 H Pulse Oximetry Oxygen Delivery 12/13/24 01:30 12/13/24 02:00 12/13/24 02:30 Temperature Pulse Rate 102 H 104 H 102 H Blood Pressure 119/75 135/77 140/67 Pulse Oximetry Oxygen Delivery 12/13/24 03:00 12/13/24 03:30 12/13/24 04:00 Temperature Pulse Rate 99 94 97 Blood Pressure 132/77 124/75 123/70 Pulse Oximetry Oxygen Delivery 12/13/24 04:30 12/13/24 04:30 12/13/24 05:00 Temperature 97.9 F Pulse Rate 95 89 Blood Pressure 135/63 130/67 Pulse Oximetry Oxygen Delivery 12/13/24 05:30 12/13/24 06:00 12/13/24 06:30 Temperature Pulse Rate 97 98 100 Blood Pressure 114/80 129/90 123/100 H Pulse Oximetry Oxygen Delivery 12/13/24 06:34 12/13/24 07:00 12/13/24 07:30 Temperature 98.1 F Pulse Rate 101 H 95 Blood Pressure 114/73 123/72 Pulse Oximetry Oxygen Delivery 12/13/24 07:30 12/13/24 07:47 12/13/24 07:52 Temperature Pulse Rate Blood Pressure Pulse Oximetry 96 99 Oxygen Delivery Room Air 12/13/24 07:57 12/13/24 08:00 12/13/24 08:02 Temperature Pulse Rate 110 H Blood Pressure 141/99 H Pulse Oximetry 98 97 Oxygen Delivery 12/13/24 08:07 12/13/24 08:09 12/13/24 08:14 Temperature Pulse Rate Blood Pressure Pulse Oximetry 97 99 99 Oxygen Delivery 12/13/24 08:19 12/13/24 08:24 12/13/24 08:26 Temperature Pulse Rate Blood Pressure Pulse Oximetry 100 100 96 Oxygen Delivery 12/13/24 08:30 12/13/24 08:31 12/13/24 08:33 Temperature Pulse Rate 122 H 117 H Blood Pressure 123/89 134/73 Pulse Oximetry 100 Oxygen Delivery 12/13/24 08:35 12/13/24 08:36 12/13/24 08:37 Temperature Pulse Rate 125 H 117 H Blood Pressure 128/63 126/56 L Pulse Oximetry 98 Oxygen Delivery 12/13/24 08:39 12/13/24 08:41 12/13/24 08:42 Temperature Pulse Rate 116 H 117 H Blood Pressure 126/60 124/53 L Pulse Oximetry 98 Oxygen Delivery 12/13/24 08:45 12/13/24 08:46 12/13/24 08:48 Temperature Pulse Rate 111 H 126 H Blood Pressure 122/63 108/58 L Pulse Oximetry 100 Oxygen Delivery 12/13/24 08:51 12/13/24 08:54 12/13/24 08:55 Temperature Pulse Rate 111 H 107 H Blood Pressure 113/64 115/50 L Pulse Oximetry 99 98 Oxygen Delivery 12/13/24 08:57 12/13/24 09:00 12/13/24 09:03 Temperature Pulse Rate 119 H 100 105 H Blood Pressure 106/59 L 114/59 L 112/56 L Pulse Oximetry 99 Oxygen Delivery 12/13/24 09:05 12/13/24 09:06 12/13/24 09:09 Temperature Pulse Rate 92 98 Blood Pressure 115/57 L 113/58 L Pulse Oximetry 100 Oxygen Delivery 12/13/24 09:10 12/13/24 09:12 12/13/24 09:15 Temperature Pulse Rate 109 H 102 H Blood Pressure 110/67 114/64 Pulse Oximetry 97 98 Oxygen Delivery 12/13/24 09:18 12/13/24 09:20 12/13/24 09:21 Temperature Pulse Rate 114 H 112 H Blood Pressure 113/67 107/74 Pulse Oximetry 100 Oxygen Delivery 12/13/24 09:25 12/13/24 09:30 12/13/24 09:35 Temperature 97.1 F L Pulse Rate 92 Blood Pressure 117/62 Pulse Oximetry 100 98 95 Oxygen Delivery 12/13/24 09:40 12/13/24 09:45 12/13/24 09:50 Temperature Pulse Rate 91 Blood Pressure 112/61 Pulse Oximetry 97 97 97 Oxygen Delivery 12/13/24 09:55 12/13/24 10:00 12/13/24 10:05 Temperature Pulse Rate 93 Blood Pressure 107/53 L Pulse Oximetry 95 96 97 Oxygen Delivery 12/13/24 10:10 12/13/24 10:15 12/13/24 10:20 Temperature Pulse Rate 103 H Blood Pressure 109/64 Pulse Oximetry 96 97 97 Oxygen Delivery 12/13/24 10:23 12/13/24 10:28 12/13/24 10:31 Temperature Pulse Rate 113 H Blood Pressure 113/48 L Pulse Oximetry 99 99 Oxygen Delivery 12/13/24 10:33 12/13/24 10:38 12/13/24 10:41 Temperature Pulse Rate Blood Pressure Pulse Oximetry 100 100 100 Oxygen Delivery 12/13/24 10:43 12/13/24 10:44 12/13/24 10:45 Temperature Pulse Rate 108 H Blood Pressure 110/66 Pulse Oximetry 100 99 Oxygen Delivery 12/13/24 11:00 12/13/24 11:03 12/13/24 11:08 Temperature Pulse Rate 106 H Blood Pressure 104/53 L Pulse Oximetry 98 98 Oxygen Delivery 12/13/24 11:13 12/13/24 11:15 12/13/24 11:18 Temperature Pulse Rate 102 H Blood Pressure 108/58 L Pulse Oximetry 99 100 Oxygen Delivery 12/13/24 11:23 12/13/24 11:28 12/13/24 11:30 Temperature Pulse Rate 100 Blood Pressure 89/53 L Pulse Oximetry 100 100 Oxygen Delivery 12/13/24 11:31 12/13/24 11:35 12/13/24 11:36 Temperature 98.7 F Pulse Rate Blood Pressure Pulse Oximetry 97 99 Oxygen Delivery 12/13/24 11:41 12/13/24 11:45 12/13/24 11:46 Temperature Pulse Rate 110 H Blood Pressure 102/45 L Pulse Oximetry 99 100 Oxygen Delivery 12/13/24 11:51 12/13/24 11:56 12/13/24 12:00 Temperature Pulse Rate 110 H Blood Pressure 110/56 L Pulse Oximetry 100 98 Oxygen Delivery 12/13/24 12:01 12/13/24 12:06 12/13/24 12:11 Temperature Pulse Rate Blood Pressure Pulse Oximetry 100 100 98 Oxygen Delivery 12/13/24 12:15 12/13/24 12:16 12/13/24 12:21 Temperature Pulse Rate 110 H Blood Pressure 104/55 L Pulse Oximetry 99 98 Oxygen Delivery 12/13/24 12:24 12/13/24 12:25 12/13/24 12:29 Temperature 98 F Pulse Rate Blood Pressure Pulse Oximetry 99 98 Oxygen Delivery 12/13/24 12:30 12/13/24 12:34 12/13/24 12:39 Temperature Pulse Rate 117 H Blood Pressure 120/80 Pulse Oximetry 99 100 Oxygen Delivery 12/13/24 12:40 12/13/24 12:45 12/13/24 12:50 Temperature Pulse Rate 106 H Blood Pressure 118/72 Pulse Oximetry 99 100 99 Oxygen Delivery 12/13/24 12:55 12/13/24 13:00 12/13/24 13:05 Temperature Pulse Rate 96 Blood Pressure 124/75 Pulse Oximetry 100 97 100 Oxygen Delivery 12/13/24 13:10 12/13/24 13:15 12/13/24 13:16 Temperature Pulse Rate 109 H Blood Pressure 101/56 L Pulse Oximetry 100 100 99 Oxygen Delivery 12/13/24 13:20 12/13/24 13:21 12/13/24 13:26 Temperature Pulse Rate Blood Pressure Pulse Oximetry 99 100 100 Oxygen Delivery 12/13/24 13:30 12/13/24 13:35 12/13/24 13:40 Temperature Pulse Rate 103 H Blood Pressure 102/44 L Pulse Oximetry 98 100 100 Oxygen Delivery 12/13/24 13:45 12/13/24 13:50 12/13/24 13:55 Temperature Pulse Rate 100 Blood Pressure 97/50 L Pulse Oximetry 98 100 98 Oxygen Delivery 12/13/24 14:00 12/13/24 14:05 12/13/24 14:10 Temperature Pulse Rate 104 H Blood Pressure 103/55 L Pulse Oximetry 98 100 99 Oxygen Delivery 12/13/24 14:15 12/13/24 14:16 12/13/24 14:20 Temperature 99.8 F H Pulse Rate 102 H Blood Pressure 74/21 L Pulse Oximetry 100 100 Oxygen Delivery 12/13/24 14:23 12/13/24 14:25 12/13/24 14:30 Temperature Pulse Rate 118 H 122 H Blood Pressure 120/71 127/73 Pulse Oximetry 99 98 Oxygen Delivery 12/13/24 14:32 12/13/24 14:33 12/13/24 14:33 Temperature Pulse Rate Blood Pressure Pulse Oximetry 99 98 98 Oxygen Delivery 12/13/24 14:35 12/13/24 14:38 12/13/24 14:39 Temperature Pulse Rate Blood Pressure Pulse Oximetry 99 98 100 Oxygen Delivery 12/13/24 14:43 12/13/24 14:43 12/13/24 14:44 Temperature Pulse Rate Blood Pressure Pulse Oximetry 99 99 98 Oxygen Delivery 12/13/24 14:44 12/13/24 14:45 12/13/24 14:47 Temperature Pulse Rate 109 H Blood Pressure 138/88 Pulse Oximetry 97 99 Oxygen Delivery 12/13/24 14:47 12/13/24 14:52 12/13/24 14:53 Temperature Pulse Rate Blood Pressure Pulse Oximetry 98 97 98 Oxygen Delivery 12/13/24 14:58 12/13/24 15:00 12/13/24 15:03 Temperature Pulse Rate 107 H Blood Pressure 153/87 H Pulse Oximetry 99 97 Oxygen Delivery 12/13/24 15:08 12/13/24 15:13 12/13/24 15:16 Temperature Pulse Rate 114 H Blood Pressure 138/106 H Pulse Oximetry 98 97 Oxygen Delivery 12/13/24 15:17 12/13/24 15:18 12/13/24 15:18 Temperature Pulse Rate Blood Pressure Pulse Oximetry 83 L 96 95 Oxygen Delivery 12/13/24 15:19 12/13/24 15:20 12/13/24 15:25 Temperature Pulse Rate Blood Pressure Pulse Oximetry 97 88 L 99 Oxygen Delivery 12/13/24 15:30 12/13/24 15:31 12/13/24 15:32 Temperature Pulse Rate 109 H Blood Pressure 149/109 H Pulse Oximetry 100 97 97 Oxygen Delivery 12/13/24 15:34 12/13/24 15:39 12/13/24 15:44 Temperature Pulse Rate Blood Pressure Pulse Oximetry 97 100 99 Oxygen Delivery 12/13/24 15:45 12/13/24 15:49 12/13/24 15:51 Temperature Pulse Rate 105 H Blood Pressure 128/66 Pulse Oximetry 100 100 Oxygen Delivery 12/13/24 15:56 12/13/24 15:57 12/13/24 16:00 Temperature Pulse Rate 112 H Blood Pressure 132/64 Pulse Oximetry 100 100 Oxygen Delivery 12/13/24 16:02 12/13/24 16:07 12/13/24 16:12 Temperature Pulse Rate Blood Pressure Pulse Oximetry 100 100 100 Oxygen Delivery 12/13/24 16:12 12/13/24 16:16 12/13/24 16:17 Temperature Pulse Rate 132 H Blood Pressure 90/50 L Pulse Oximetry 99 100 Oxygen Delivery 12/13/24 16:22 12/13/24 16:23 12/13/24 16:25 Temperature 99.6 F Pulse Rate Blood Pressure Pulse Oximetry 100 99 Oxygen Delivery 12/13/24 16:26 12/13/24 16:27 12/13/24 16:30 Temperature Pulse Rate 122 H Blood Pressure 121/85 Pulse Oximetry 100 100 Oxygen Delivery 12/13/24 16:32 12/13/24 16:37 12/13/24 16:42 Temperature Pulse Rate Blood Pressure Pulse Oximetry 98 98 99 Oxygen Delivery 12/13/24 16:45 12/13/24 16:47 12/13/24 16:52 Temperature Pulse Rate 120 H Blood Pressure 115/66 Pulse Oximetry 97 98 Oxygen Delivery 12/13/24 16:57 12/13/24 17:00 12/13/24 17:02 Temperature Pulse Rate 111 H Blood Pressure 121/78 Pulse Oximetry 98 98 Oxygen Delivery 12/13/24 17:03 12/13/24 17:06 12/13/24 17:11 Temperature Pulse Rate Blood Pressure Pulse Oximetry 99 98 99 Oxygen Delivery 12/13/24 17:15 12/13/24 17:16 12/13/24 17:19 Temperature Pulse Rate 112 H Blood Pressure 133/81 Pulse Oximetry 99 99 Oxygen Delivery 12/13/24 17:24 12/13/24 17:29 12/13/24 17:30 Temperature Pulse Rate 126 H Blood Pressure 151/137 H Pulse Oximetry 97 99 Oxygen Delivery 12/13/24 17:32 12/13/24 17:34 12/13/24 17:39 Temperature 98.3 F Pulse Rate Blood Pressure Pulse Oximetry 99 100 Oxygen Delivery 12/13/24 17:44 12/13/24 17:45 12/13/24 17:49 Temperature Pulse Rate 97 Blood Pressure 157/107 H Pulse Oximetry 100 99 Oxygen Delivery 12/13/24 17:54 12/13/24 17:59 12/13/24 18:00 Temperature 98 F Pulse Rate 97 Blood Pressure 133/64 Pulse Oximetry 100 100 Oxygen Delivery 12/13/24 18:04 12/13/24 18:09 12/13/24 18:14 Temperature Pulse Rate Blood Pressure Pulse Oximetry 99 100 99 Oxygen Delivery 12/13/24 18:15 12/13/24 18:19 12/13/24 18:23 Temperature Pulse Rate 103 H Blood Pressure 136/60 Pulse Oximetry 99 99 Oxygen Delivery 12/13/24 18:28 12/13/24 18:29 12/13/24 18:34 Temperature Pulse Rate Blood Pressure Pulse Oximetry 100 100 100 Oxygen Delivery 12/13/24 18:39 12/13/24 18:44 12/13/24 18:49 Temperature Pulse Rate Blood Pressure Pulse Oximetry 100 100 100 Oxygen Delivery 12/13/24 18:54 12/13/24 18:59 12/13/24 19:00 Temperature Pulse Rate 115 H Blood Pressure 136/80 Pulse Oximetry 100 100 Oxygen Delivery 12/13/24 19:04 12/13/24 19:09 12/13/24 19:14 Temperature Pulse Rate Blood Pressure Pulse Oximetry 100 100 100 Oxygen Delivery 12/13/24 19:15 12/13/24 19:17 12/13/24 19:20 Temperature Pulse Rate 97 Blood Pressure 125/72 Pulse Oximetry 100 99 Oxygen Delivery 12/13/24 19:20 12/13/24 19:22 12/13/24 19:22 Temperature Pulse Rate Blood Pressure Pulse Oximetry 100 100 100 Oxygen Delivery 12/13/24 19:22 12/13/24 19:23 12/13/24 19:23 Temperature Pulse Rate Blood Pressure Pulse Oximetry 95 100 100 Oxygen Delivery 12/13/24 19:24 12/13/24 19:29 12/13/24 19:30 Temperature Pulse Rate 199 H Blood Pressure 114/58 L Pulse Oximetry 100 100 Oxygen Delivery 12/13/24 19:34 12/13/24 19:37 12/13/24 19:37 Temperature Pulse Rate Blood Pressure Pulse Oximetry 100 100 100 Oxygen Delivery 12/13/24 19:42 12/13/24 19:45 12/13/24 19:46 Temperature 100.4 F H Pulse Rate 189 H Blood Pressure 126/96 H Pulse Oximetry 100 Oxygen Delivery 12/13/24 19:47 12/13/24 19:52 12/13/24 19:54 Temperature Pulse Rate Blood Pressure Pulse Oximetry 99 100 100 Oxygen Delivery 12/13/24 19:59 12/13/24 20:00 12/13/24 20:04 Temperature Pulse Rate 112 H Blood Pressure 134/55 L Pulse Oximetry 100 98 Oxygen Delivery 12/13/24 20:09 12/13/24 20:14 12/13/24 20:15 Temperature Pulse Rate 103 H Blood Pressure 138/89 Pulse Oximetry 100 100 Oxygen Delivery 12/13/24 20:16 12/13/24 20:20 12/13/24 20:25 Temperature 99.9 F H Pulse Rate Blood Pressure Pulse Oximetry 97 100 Oxygen Delivery 12/13/24 20:30 12/13/24 20:35 Temperature Pulse Rate 115 H Blood Pressure 152/79 H Pulse Oximetry 100 100 Oxygen Delivery Exam Const: General: cooperative, healthy appearing, comfortable and no acute distress Orientation/consciousness: oriented to person, oriented to place and oriented to time HENMT: Head: normal to inspection Ears: external ears normal Face/Nose/Sinus: Normal external nose present and normal facial exam Face and sinus: normal facial exam Eyes: General: appearance normal, both eyes and all related structures Neck: Neck: normal visual inspection, trachea midline and supple Resp: Auscultation: clear to auscultation bilaterally, no crackles, no rales, no rhonchi and no wheezes Cardio: Rate: regular rate Rhythm: regular rhythm Heart sounds: no click, no murmurs and no rubs GI: GI Palp: No abdominal tenderness, No Soft to palpation, No Tenderness to palpation present (GI) and No Palpable mass present Auscultation: normal bowel sounds Skin: General skin exam: normal color and no rashes or lesions noted Neuro: General: oriented to person, oriented to place and oriented to time Extrem: General: normal to inspection, no joint enlargement, no clubbing, cyanosis or edema, no pedal edema and no calf tenderness Psych: Appearance: grossly normal Mental Status: mental status grossly normal Speech and movement: Normal speech and movement present Assessment and Plan Assessment and plan (1) Gestational hypertension: Code(s): O13.9 - Gestational [-induced] hypertension without significant proteinuria, unspecified trimester Status: Acute (2) Non-reassuring status, delivered, current hospitalization: Code(s): O75.89 - Other specified complications of labor and delivery Status: Acute Assessment and Plan: 29-year-old female at 39 weeks gestation with gestational hypertension. Induction of labor. Developed nonreassuring status, nonreassuring and heart tracing early in the 1st stage of labor. To proceed with delivery. She understands risks, benefits, and alternatives. She has completed the informed consent process and is ready to proceed.
[2024-12-13] MEDS: ACETAMINOPHEN 500 MG TABLET 1000 MG PO (20:45)
[2024-12-13] MEDS: FAMOTIDINE 20 MG/2 ML VIAL IV PUSH (20:45)
[2024-12-13] MEDS: ONDANSETRON INJ 4 MG/2 ML VIAL IV PUSH (20:45)
[2024-12-13] MEDS: ceFAZolin 2 GM/D5W 50 ML 2 GM/50 ML BAG IVPB (20:49)
[2024-12-13] MEDS: AZITHROMYCIN 500 MG/NS 250 ML 500 MG/250 ML BAG 250 MG IVPB (20:49)
--- NOTE | 2024-12-13 20:49 | WPDHPUPDATE1 ---
History and Physical Update Update Date/Time: 12/13/24 20:49 History and Physical has been reviewed, including an updated exam of the patient. There are NO changes in the patient's condition. Risks, benefits, and alternatives have been discussed and questions answered. Patient agrees to proceed with procedure.
--- NOTE | 2024-12-13 21:37 | W.PM.OBCSD ---
OB - Delivery Note Procedure Delivery date: 12/13/24 Pre-op diagnosis: Non-Reassuring Status Post-op Diagnosis: Same Induction method: AROM and Per Pitocin Protocol Delivery monitor: External FHT and External Uterine Procedure Performed: Primary Surgeon: Rudi Francis MD Anesthesia type: Epidural Description of Procedure/Findings: The patient was taken the operating room.? She was prepped and draped in dorsal supine position with a leftward tilt.? This was done after spinal anesthetic was applied.? A low-transverse skin incision was made and carried down till of the fascia with the knife.? The fascial incision was made with the knife.? The fascial incision was extended laterally with Cruz scissors.? The fascia was tented upward superiorly and inferiorly the rectus muscles were dissected off bluntly.? The rectus muscles were the midline.? The preperitoneal fat and peritoneum were dissected open bluntly at the superior aspect of the rectus muscles.? The peritoneal incision was extended superior and inferior with good position of bladder.? The uterine incision was made with a scalpel down to the level of the amniotic cavity.? The amniotic cavity was entered bluntly.? The infant was delivered.? The cord was clamped and cut and the infant was handed off to waiting pediatric staff.? Cord bloods were obtained.? The placenta was removed manually.? The uterus was exteriorized.? The uterus was cleared of all clots, debris and membranes.? The uterus was closed in 0 Vicryl running lock fashion.? An imbricating over a was placed along the incision line as well.? The uterus was returned to the abdomen.? The gutters were cleared of all clots and debris.? The fascia was closed with 0 Vicryl running fashion.? The subcutaneous tissue was irrigated pinpoint bleeders were cauterized.? The skin was closed with subcuticular absorbable charley.? The skin incision line was covered with glue.? The patient tolerated the procedure well.? She has taken recovery room in stable condition.? Sponge lap and needle counts were correct x2.? Complications: No immediate complications Condition: Stable Disposition: Floor
[2024-12-13] MEDS: OXYTOCIN 30 UNITS/NS 500 ML 30 UNITS/500 ML BAG 125 UNITS IV CONT (22:18)
--- NOTE | 2024-12-13 23:45 | OBPPTRN ---
Patient transferred to post room #280 via stretcher. Support person present. Oriented to unit, room, information board, rooming in, admission packet and security measures. Patient verbalizes understanding.
[2024-12-14] MEDS: KETOROLAC 15 MG/ML VIAL (*BKC) IV PUSH ×4 (00:17→18:45)
[2024-12-14] MEDS: ACETAMINOPHEN 325 MG TABLET 650 MG PO ×4 (00:17→18:45)
[2024-12-14] MEDS: LIDOCAINE 5% PATCH 1 PATCH TRANSDERM (00:18)
[2024-12-14 01:45] VITALS: BP 111/64; PULSE 80; RESP 18; TEMP 36.4; O2SAT 95
[2024-12-14] MEDS: diphenhydrAMINE HCl CAP 25 MG CAPSULE PO (04:22)
--- NOTE | 2024-12-14 04:44 | P.PNOB_ITS ---
OB - PN: Subj Subjective Date/time seen: 12/14/24 04:44 Interval history: pp day 1 s/p for intolerance doing well OB - PN: Obj Data Labs 12/12/24 12:27 12/12/24 12:37 OB - PN A/P Plan day: 1 Plan: routine care Time Spent With Patient Time: Total time spent is greater than 50% in coordination of care (as documented) at patient's floor/unit and/or counseling patient: Review of Systems 2 Review of Systems: All systems reviewed & are unremarkable except as noted in HPI and below Exam 2 Const: General: cooperative and healthy appearing Chest: Chest palpation & inspection: normal inspection of the chest GI: Other: incision CDI Back/Spine/Pelvis: Back: no CVA tenderness Skin: General skin exam: normal color
--- NOTE | 2024-12-14 07:12 | PC.NURSE ---
Introductions were made, then consulted with patient to assess needs related to . Mother led the conversation with her?plans to feed?her and the?experience so far. Encouraged understanding of the benefits of skin to skin (demonstrating unwrapping infant and placing upright on her chest), stimulating with massage touch, changing positions to encourage wakefulness, how to watch for early feeding cues, responsive feeding, feeding on demand (aiming for 8-12 times in 24 hours, about every 2-3 hours), milk production, building/maintaining a milk supply, duration of feeding, signs of adequate intake/output and how to record on the feeding sheet. Mother works well with her infant with encouragement and education. Reviewed positioning and ear, shoulder, hip alignment, supporting the breast to facilitate a deep latch, asymmetrical latch (off-center), leading with the chin with a big, open, wide gape and body close to mother. Infant latched optimally to the [right] breast in [cradle] position, her primary RN had helped her latch and CLC now in observing feed. Education given to the mother of how to visualize the suckling (with good rocking jaw motion), swallows (dropping of the lower jaw) and how to listen for drinking at the breast (the ka sound). was [able] to maintain latch without pain to mother protecting the nipple with optimal positioning and latching. Reviewed comfort measures of healing with a warm, wet washcloth to rinse breast, then leave open to air-dry, good handwashing when or touching the breast/nipples to prevent infection. Mother voiced understanding of skin to skin, stimulating with massage touch, responsive feedings, hand expressed colostrum, talking to to encourage if it has been 2 -2.5 hours since the start of the last , to call if does not latch, or if there is discomfort with . Resources used for education were facilitated with the [visual educational handouts/ tool/mom and baby guide], Inpatient/outpatient resources provided with business card, feeding sheet, name written on the communication board, and the mom/baby guide. Parents voiced understanding of information, demonstrated learning and will call if there is a request for assistance. Reported to the Primary RN.
[2024-12-14 07:50] VITALS: BP 115/64; PULSE 102; RESP 18; TEMP 37.3; O2SAT 96
[2024-12-14] MEDS: SIMETHICONE 80 MG TAB.CHEW PO ×3 (08:53→16:58)
[2024-12-14] MEDS: DOCUSATE SODIUM 100 MG CAPSULE PO ×2 (08:53→16:58)
[2024-12-14] MEDS: MULTIVIT/MIN/PREN/FOL AC/IRON TABLET 1 TAB PO (08:53)
--- NOTE | 2024-12-14 09:13 | WPDANLDPN2 ---
Anes-Prog Note L&D Date/Time: 12/14/24 09:13 Comfortable throughout: labor and section Neuraxial method: epidural Epidural/Spinal procedure site: clean & non-tender Neuro status: Neuro function grossly intact. Cardiovascular status: normal Respiratory status: normal Airway patency: baseline Mental status: baseline Post-Op hydration status: normal Vital Signs: Last Vital Signs Temp 36.4 C 12/14/24 01:45 Pulse 80 12/14/24 01:45 Resp 18 12/14/24 01:45 BP 111/64 12/14/24 01:45 Pulse Ox 95 12/14/24 01:45 O2 Del Method Room Air 12/14/24 01:45 Pain score (VAS): 09/01 I/O: Intake & Output 12/13/24 12/14/24 12/14/24 23:59 07:59 15:59 Intake Total 1802.1 Output Total 1080 450 Balance 722.1 -450 Post-procedural complaints: none Patient feedback: Patient satisfied with anesthetic care.
--- NOTE | 2024-12-14 09:14 | WPDANLDNPN2 ---
Anes-Prog Note L&D-Neuraxial Date/Time: 12/14/24 09:14 Neuraxial medications: epidural PF morphine Opiod-related complaints: none Patient feedback: Patient satisfied with post-operative pain management.
[2024-12-14 09:15] LABS: Basophils Percent Auto 0.3 % (0.2-1.2); Eosinophils Percent Auto 0.3 % (0-4.4); Hematocrit 29.5 % (37.0-47.0); Hemoglobin 9.5 g/dL (12.0-15.0); Immature Granulocyte Absolute 0.07 K/mm3 (0.00-0.031); Immature Granulocyte Percent A 0.6 % (0-0.5); Lymphocytes Absolute Auto 2.16 K/mm3 (0.9-3.2); Lymphocytes Percent Auto 17.4 % (18.3-44.2); Mean Corpuscular HGB Conc 32.2 g/dl (32-36); Mean Corpuscular Hemoglobin 27.3 pg (26-34); Mean Corpuscular Volume 84.8 fl (80-100); Mean Platelet Volume 11.7 fl (7.4-10.4); Monocytes Absolute Auto 0.9 K/mm3 (0.1-0.6); Monocytes Percent Auto 7.5 % (2.6-8.5); Neutrophils Absolute Auto 9.2 K/mm3 (1.3-6.7); Neutrophils Percent Auto 73.9 % (45.5-73.1); Platelet Count Result 153 k/mm3 (150-375); Red Blood Count 3.48 M/mm3 (4.2-5.4); Red Cell Distribution Width 16.4 % (11.5-14.5); White Blood Count 12.4 K/mm3 (4.5-10.0)
[2024-12-14] MEDS: POLYSACCHARIDE IRON COMPLEX 150 MG CAPSULE PO ×2 (09:32→16:58)
[2024-12-14] MEDS: HYDROcodone/acetaminophen (*CRX) 5-325 MG TABLET 1 TAB PO (14:40)
--- NOTE | 2024-12-14 17:36 | PC.NURSE ---
1730. CLC called to patients room to discuss pumping and feeding with formula supplementation. Patient reports she wants info on combo feeding and supplementing as well as continuing to breastfeed . We discussed pumping and when it is necessary. She reports she would like to pump and see how much she can get out. Mom also requesting a nipple shield to have on hand if she gets some pain. Mom reports is well currently, and typically feeds for 20 min on each breast. Breast pump provided due to moms pref. Instructions given on cleaning, care, usage, that there should be no pain, pumping schedule for milk production, collection, and storage of human milk. Patient was assessed for correct placement, flange size, to pump for comfort and nipple stretching/stimulation for adequate milk production every 3 hours (8 times in 24 hours) 1-2 times at night. Parents are encouraged to record the pumping schedule on the feeding sheet.?Mother voiced understanding of the education shared along with mom/baby guide and the pump measurement, flange fit handout for additional resource information. Nipple shield provided to mother due to mothers preference. Reviewed good handwashing, cleaning the nipple shield and the appropriate way to apply and use as a tool. Discussed with mom the nipple shield precautions, possible complications associated with the risks and benefits. Reviewed practicing with a nipple shield, then without and how to protect the milk supply and production. Mom and baby guide referred to as a resource for outpatient services, community resources and when to call a provider. Mom voiced understanding of the importance of hand expression, nipple stimulation and initiating a pumping schedule if infant continues to nurse with the shield. Reported to the Primary RN.
[2024-12-14 20:00] VITALS: BP 130/74; PULSE 109; RESP 16; TEMP 37.2; O2SAT 98
[2024-12-14] MEDS: HYDROcodone/acetaminophen (*CRX) 10-325 MG TABLET 1 TAB PO (21:30)
[2024-12-15] MEDS: ACETAMINOPHEN 325 MG TABLET 650 MG PO ×4 (00:40→19:50)
[2024-12-15] MEDS: IBUPROFEN 600 MG TABLET PO ×4 (00:40→19:50)
[2024-12-15] MEDS: LIDOCAINE 5% PATCH 1 PATCH TRANSDERM ×2 (00:41→23:25)
[2024-12-15] MEDS: HYDROcodone/acetaminophen (*CRX) 10-325 MG TABLET 1 TAB PO ×2 (05:00→12:38)
--- NOTE | 2024-12-15 07:42 | P.PNOB_ITS ---
OB - PN: Subj Subjective Date/time seen: 12/15/24 07:42 Interval history: pp day 2 s/p for intolerance doing well OB - PN: Obj Data Labs 12/14/24 09:00 12/12/24 12:37 Labs: Laboratory Results - last 24 hr 12/14/24 09:00 WBC 12.4 H RBC 3.48 L Hgb 9.5 L Hct 29.5 L MCV 84.8 MCH 27.3 MCHC 32.2 RDW 16.4 H Plt Count 153 MPV 11.7 H Immature Gran % (Auto) 0.6 H Neut % (Auto) 73.9 H Lymph % (Auto) 17.4 L [place] % (Auto) 7.5 Eos % (Auto) 0.3 Baso % (Auto) 0.3 Lymph # (Auto) 2.16 [place] # (Auto) 0.9 H Eos # (Auto) 0.0 Baso # (Auto) 0.0 Abs Immat Gran (auto) 0.07 H Absolute Neuts (auto) 9.2 H Absolute Nucleated RBC 0.000 Nucleated RBC % 0.0 OB - PN A/P Plan day: 2 Plan: routine care Time Spent With Patient Time: Total time spent is greater than 50% in coordination of care (as documented) at patient's floor/unit and/or counseling patient: Review of Systems 2 Review of Systems: All systems reviewed & are unremarkable except as noted in HPI and below Exam 2 Const: General: cooperative, healthy appearing and comfortable Chest: Chest palpation & inspection: normal inspection of the chest Resp: Effort & Inspection: normal respiratory effort GI: Other: incision CDI Skin: General skin exam: normal color
[2024-12-15] MEDS: POLYSACCHARIDE IRON COMPLEX 150 MG CAPSULE PO ×2 (07:56→16:07)
[2024-12-15] MEDS: DOCUSATE SODIUM 100 MG CAPSULE PO ×2 (07:57→16:08)
[2024-12-15] MEDS: MULTIVIT/MIN/PREN/FOL AC/IRON TABLET 1 TAB PO (07:57)
[2024-12-15] MEDS: SIMETHICONE 80 MG TAB.CHEW PO ×3 (07:57→16:08)
[2024-12-15 08:00] VITALS: BP 111/58; PULSE 112; RESP 18; TEMP 36.5; O2SAT 98
--- NOTE | 2024-12-15 08:30 | PC.NURSE ---
Patient has baby at the breast in cradle on the left side. The latch appears a little shallow but mom says that it is feeling ok. Baby is suckling off and on and we reviewed that sleepy newborns are typical especially in the first few days . Mom pumped some yesterday because she wanted to 'see what happened' but 'nothing came out'. We discussed that is expected in the colostral phase and that if mom's intention is to exclusively breastfeed, she doesn't need to pump at this time. If baby doesn't breastfeed well, then we would need to pump to stimulate the milk supply. Mom won't need to return to work for some time and will initiate pumping when that times comes closer. [facility] referral faxed per patient request. Patient is encouraged to call out for assistance today as needed. RN updated.
[2024-12-15 19:50] VITALS: BP 132/75; PULSE 102; RESP 18; TEMP 36.1; O2SAT 98
[2024-12-15] MEDS: HYDROcodone/acetaminophen (*CRX) 5-325 MG TABLET 1 TAB PO (23:25)
[2024-12-16] MEDS: IBUPROFEN 600 MG TABLET PO ×2 (02:05→09:02)
[2024-12-16] MEDS: ACETAMINOPHEN 325 MG TABLET 650 MG PO ×2 (02:05→09:02)
[2024-12-16 07:33] VITALS: BP 140/76; PULSE 104; RESP 19; TEMP 36.6; O2SAT 100
--- NOTE | 2024-12-16 08:29 | P.PNOB_ITS ---
OB - PN: Subj Subjective Date/time seen: 12/16/24 08:29 Interval history: pp day 2 s/p for intolerance doing well, has not passed gas since surgery, up walking, no pain OB - PN: Obj Data Labs 12/14/24 09:00 12/12/24 12:37 OB - PN A/P Plan day: 3 Plan: routine care and discharge home Comments: if pt is able to pass gas, may be d/c home Time Spent With Patient Time: Total time spent is greater than 50% in coordination of care (as documented) at patient's floor/unit and/or counseling patient: Review of Systems 2 Review of Systems: All systems reviewed & are unremarkable except as noted in HPI and below Exam 2 Const: General: cooperative, healthy appearing and comfortable Chest: Chest palpation & inspection: normal inspection of the chest Resp: Effort & Inspection: normal respiratory effort Cardio: Rate: regular rate
--- NOTE | 2024-12-16 08:32 | PM.OBDSVD ---
DS: Admitting Diagnosis Discharge Date 12/16/24 Admitting Diagnosis Srom DS: Discharge Diagnosis Discharge Diagnosis (1) Delivery by section: Status: Acute OB - DS: Summary OB Procedures : None OB Procedures Intrapartum: OB Procedures: : None Peripartum Data Procedures: Procedures Operation Date: 12/13/24 20:40 Actual Procedure Side Surgeon p Section Not Applicable Rudi Francis MD Time Spent with Patient Time attestation: Total time spent providing and/or coordinating discharge services: Discharge Plan Discharge Attending physician on discharge: Rudi Francis Discharging Clinician: Doris Ortiz Patient Disposition: Home Activity: pelvic rest Diet: regular Patient Instructions: Antibiotic Form Patient Language: Tajik Stand Alone Forms: General Discharge Information Follow-up/Referrals: Rudi Francis MD [Physician] - 1 Week Discharge Medications: New hydrocodone-acetaminophen 5-325 mg Tablet 1 tablet PO Q3H PRN (Reason: Breakthrough Pain Rated 4-6) 10 Days Qty: 25 0RF ibuprofen 600 mg Tablet 600 mg PO Q6H Qty: 30 0RF Continued PNV cmb#95-ferrous fumarate-FA [] 28 mg iron- 800 mcg tablet 1 tablet PO DAILY Date of admission: 12/12/24 10:54 Primary Care Provider: UNKNOWN,DOCTOR Admitting Provider: Jesse Chiu Attending physician on admission: Jesse Chiu Condition: Stable
[2024-12-16 08:58] LABS: Basophils Percent Auto 0.4 % (0.2-1.2); Eosinophils Absolute Auto 0.1 K/mm3 (0-0.3); Eosinophils Percent Auto 1.3 % (0-4.4); Hematocrit 30.5 % (37.0-47.0); Hemoglobin 9.7 g/dL (12.0-15.0); Immature Granulocyte Absolute 0.07 K/mm3 (0.00-0.031); Immature Granulocyte Percent A 0.7 % (0-0.5); Lymphocytes Absolute Auto 2.29 K/mm3 (0.9-3.2); Lymphocytes Percent Auto 22.8 % (18.3-44.2); Mean Corpuscular HGB Conc 31.8 g/dl (32-36); Mean Corpuscular Hemoglobin 26.9 pg (26-34); Mean Corpuscular Volume 84.7 fl (80-100); Mean Platelet Volume 11.4 fl (7.4-10.4); Monocytes Absolute Auto 0.6 K/mm3 (0.1-0.6); Monocytes Percent Auto 6.2 % (2.6-8.5); Neutrophils Absolute Auto 6.9 K/mm3 (1.3-6.7); Neutrophils Percent Auto 68.6 % (45.5-73.1); Platelet Count Result 203 k/mm3 (150-375); Red Cell Distribution Width 16.4 % (11.5-14.5); White Blood Count 10.1 K/mm3 (4.5-10.0)
[2024-12-16] MEDS: SIMETHICONE 80 MG TAB.CHEW PO (09:02)
[2024-12-16] MEDS: MULTIVIT/MIN/PREN/FOL AC/IRON TABLET 1 TAB PO (09:02)
[2024-12-16] MEDS: DOCUSATE SODIUM 100 MG CAPSULE PO (09:02)
[2024-12-16] MEDS: POLYSACCHARIDE IRON COMPLEX 150 MG CAPSULE PO (09:02)
[2024-12-16 09:08] LABS: Alanine Aminotransferase 23 U/L (6-35); Albumin Level 2.7 g/dL (3.5-5.1); Alkaline Phosphatase 126 U/L (38-126); Anion Gap 6 mmol/L (4-12); Aspartate Amino Transferase 43 U/L (14-36); Bilirubin,Total 0.3 mg/dL (0.2-1.3); Blood Urea Nitrogen 11 mg/dL (7-17); Calcium 8.4 mg/dL (8.4-10.2); Carbon Dioxide 23 mmol/L (22-30); Chloride 108 mmol/L (98-107); Estimated CRCL calculation 120 ml/min; Estimated Glomerular Filt Rate > 60; Glucose 81 mg/dL (65-110); Potassium 3.9 mmol/L (3.4-5.0); Sodium 137 mmol/L (137-145); Uric Acid 5.3 mg/dL (2.5-7.5)
--- NOTE | 2024-12-16 10:57 | PC.NURSE ---
1045. Reviewed standard discharge information with patient including monitoring for required output, transition of stools, feeding 8-12 times every 24 hours, milk production, and follow up at [facility] and with shrub grower in the first week of life. Parents are encouraged to take the feeding log and continue to track feedings and output for the first week . Offered outpatient resources with [facility] referral and Services at [place]. Patient has the Mom/Baby Guide for further education and reference for common concerns, phone numbers, and guidance on when to call the doctor. A feeding plan was added to the ?s discharge plan. Patient states that she has no further questions or concerns regarding .??? Reviewed infants feeding plan, this is and receiving supplementation at discharge. Reviewed importance of pumping at all feedings when baby doesn?t breastfeed effectively to help maintain milk supply. Reviewed signs that baby is effectively feeding.
[2024-12-18 10:32] VITALS: BP 146/67; PULSE 78; RESP 18; TEMP 36.9; O2SAT 100
== END 2024-12-16 11:11 | disposition home or self-care (01) | DRG 540 ==
LOC: ANHLDR 12-13 22:01 → ANHOB2 12-13 23:49
PROVIDERS: Advanced Practice Midwife; Obstetrics & Gynecology; Admitting Provider Obstetrics & Gynecology; Visit Provider Obstetrics & Gynecology
PROC: 10D00Z1 Extraction of Products of Conception, Low, Open Approach (ICD-10-PCS; CPT 59514; principal; 2024-12-13 20:40)
DX: O42.12 Full-term premature rupture of membranes, onset of labor more than 24 hours following rupture (principal); O99.824 Streptococcus B carrier state complicating childbirth; Z37.0 Single live birth; Z3A.39 39 weeks gestation of pregnancy; O63.0 Prolonged first stage (of labor); O13.4 Gestational [pregnancy-induced] hypertension without significant proteinuria, complicating childbirth; O36.8330 Maternal care for abnormalities of the fetal heart rate or rhythm, third trimester, not applicable or unspecified; O75.2 Pyrexia during labor, not elsewhere classified
CPT/HCPCS: 36415; 80053; 84550; 85025; 86593; 86703; 86850; 86900; 86901; A9270; G0432; J0290; J0456; J0690; J1885; J2274; J2405; J2590; J2795; J7120; J7121

== ENCOUNTER 2024-12-18 10:44 | Outpatient (CLI) | payer OTHER, SELFPAY ==
[2024-12-18] VITALS (8 sets, daily range): BP systolic 143–158; BP diastolic 76–91; PULSE 76–94
[2024-12-18 11:18] LABS: Basophils Percent Auto 0.3 % (0.2-1.2); Eosinophils Absolute Auto 0.1 K/mm3 (0-0.3); Eosinophils Percent Auto 1.9 % (0-4.4); Hematocrit 29.3 % (37.0-47.0); Immature Granulocyte Absolute 0.06 K/mm3 (0.00-0.031); Lymphocytes Absolute Auto 1.67 K/mm3 (0.9-3.2); Lymphocytes Percent Auto 27.1 % (18.3-44.2); Mean Corpuscular HGB Conc 30.7 g/dl (32-36); Mean Corpuscular Hemoglobin 26.8 pg (26-34); Mean Corpuscular Volume 87.2 fl (80-100); Mean Platelet Volume 10.8 fl (7.4-10.4); Monocytes Absolute Auto 0.4 K/mm3 (0.1-0.6); Monocytes Percent Auto 5.7 % (2.6-8.5); Platelet Count Result 217 k/mm3 (150-375); Red Blood Count 3.36 M/mm3 (4.2-5.4); Red Cell Distribution Width 16.2 % (11.5-14.5); White Blood Count 6.2 K/mm3 (4.5-10.0)
[2024-12-18 11:32] LABS: Alanine Aminotransferase 51 U/L (6-35); Albumin Level 2.8 g/dL (3.5-5.1); Alkaline Phosphatase 125 U/L (38-126); Anion Gap 3 mmol/L (4-12); Aspartate Amino Transferase 43 U/L (14-36); Bilirubin,Total 0.3 mg/dL (0.2-1.3); Blood Urea Nitrogen 11 mg/dL (7-17); Calcium 8.2 mg/dL (8.4-10.2); Carbon Dioxide 27 mmol/L (22-30); Chloride 108 mmol/L (98-107); Estimated Glomerular Filt Rate > 60; Glucose 76 mg/dL (65-110); Potassium 3.8 mmol/L (3.4-5.0); Sodium 138 mmol/L (137-145); Uric Acid 5.8 mg/dL (2.5-7.5)
--- NOTE | 2024-12-18 12:12 | PC.NURSE ---
Tyler Ortiz notified of BP's and lab results. Orders revieved.
[2024-12-18] MEDS: LABETALOL HCL 100 MG TABLET 200 MG PO (12:29)
--- OUTSIDE RECORDS SUMMARY | 2024-12-18 12:35 | XMS_ITS | Clinical Summary ---
Author Organization [facility] Address [address] [place] [address] Phone Care Team Providers Care Feller Machine Operator Name Role Phone Debo Robertson APRN, CNP Primary Care Provid er Allergies No known active allergies Medications albuterol 108 (90 Base) MCG/ACT Aerosol Solution 07/21/2024 Active guaiFENesin (MUCINEX PO) Take by mouth. Active Acetaminophen (TYLENOL PO) Take by mouth. Active Active Problems Problem Noted Date Diagnosed Date ADD (attention deficit disorder) 03/01/2017 Estimated Date of Delivery Comme nts Yes 12/18/2024 Encounters Date Type Department Care Team Description 10/19/2024 Nurse Triage [facility] [address] [place] [phone] Debo Robertson APRN, CNP Advice Only from Last 3 Months Immunizations Immunization Administration Dates Next Due Covid-19, Mrna, Lnp-s, Pf, 3 0 Mcg/0.3 Ml Dose ([employer]) 11/21/2020 DTAP VACCINE 12/30/2001, 7,1996,09/18,1996 Hepatitis A [...] Comments Blood Pressure 136/74 09/04/2024 8:23 AM INTEGRATION DEVELOPER Pulse 90 09/04/2024 8:23 AM INTEGRATION DEVELOPER Temperature 36.5 C (97.7 F) 09/04/2024 8:23 AM INTEGRATION DEVELOPER Respiratory Rate 16 09/04/2024 8:23 AM INTEGRATION DEVELOPER Oxygen Saturation 98% 09/04/2024 8:23 AM INTEGRATION DEVELOPER Inhaled Oxygen Concentration - - Weight 89.8 kg (198 lb) 09/04/2024 8:23 AM INTEGRATION DEVELOPER Height 158.8 cm (5' 2.5 ) 09/04/2024 8:23 AM INTEGRATION DEVELOPER Body Mass Index 35.64 09/04/2024 8:23 AM INTEGRATION DEVELOPER Plan of Treatment Upcoming Encounters Date Type Department Care Team (Late st Contact Info) Description 02/15/2025 10:30 AM CDT Office Visit [facility] - [place] [address] [place] [address] Debo Robertson APRN, SUPERVISORY INVESTIGATIVE SPECIALIST [facility] [facility] [address] Health Maintenance Due Date Last Done Comments Pap Smear 10/07/2023 10/07/2020 Influenza Immunization (Season Ended) 2025 09/12/2020, 06/20/2018, 06/22/2012, Additional history exists DTaP/Tdap/Td Immunization [...] age to complete this topic Insurance [place] Care Teams Feller Machine Operator Relationship Specialty Start Date End Date Debo Robertson APRN, KWASI [address] [address] PCP - General Advanced Practice Nurse 01/31/24
--- OUTSIDE RECORDS SUMMARY | 2024-12-18 12:35 | XMS_ITS | Encounter Summary ---
Author Organization [facility] Address [address] [place] [address] Phone Care Team Providers Care Blind Cleaner Name Role Phone Debo Robertson APRN, CNP Primary Care Provid er Encounter Details Date Type Department Care Team (Late Contact Info) Description 01/05/2024 Telephone [facility] [address] [place] [address] Provider, None [place] Social History [...] Department Care Team (Late Contact Info) Description 02/15/2025 10:30 AM CDT Office Visit [facility] - [place] [address] [place] [address] Debo Robertson APRN, CNP #[address] [phone] documented as of this encounter Visit Diagnoses Not on filedocumented in this encounter Additional Health Concerns Assessment Noted Time PHQ-9 Depression Total Score: 0 09/12/19 21 1:00 PM HEALTH CONSULTANT documented as of this encounter Care Teams Blind Cleaner Relationship Specialty Start Date End Date Debo Robertson APRN, NCQA SPECIALIST #[address] [phone] PCP - General Advanced Practice Nurse 01/31/24 documented as of this encounter
--- OUTSIDE RECORDS SUMMARY | 2024-12-18 12:35 | XMS_ITS | Referral Summary ---
Author Organization [facility] [address] Address [address] [place] [address] Phone Care Team Providers Care Him Clerk Name Role Phone No, Physician Primary Care Provider [phone] Allergies No known active allergies Medications albuterol [...] any time in the past 12 m [facility], were you homeless or living in a assisted (including now)? 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 Testing performed by: [facility], [address] [place] [address], [place]., [address] Blood 05/26/2024 2:18 PM CDT 05/26/2024 5:32 PM CDT us Maggie Christianson MD LAB MICROBIOLOGY - GE NERAL ORDERABLES Final Result [facility] [address] Department [place] [address] * Pap with reflex to High Risk HPV and Genotyping (Cytology Component) (05/26/2024 11:36 AM CDT) Thin prep (Pap test) 05/26/2024 11:36 AM CDT 05/26/2024 11:36 AM CDT Narrative PATHOLOGY CH - 05/30/2024 9:42 AM CDT [facility] Department of Pathology [address] [place], [place] [id number] Final Report Note to Patients: This report [...] the details. Patient Name: BETH MEYER Address: [address] [place] [address]- Gender: F : 1995 (Age: 29) Service: Location: [facility] #: [id number] Patient Type: SPECIMEN Taken: 05/26/2024 Received: 05/26/2024 Accessioned:: 05/29/2024 Reported: 05/30/2024 Physician(s): MD Maggie Gomez MD Diagnosis: SOURCE OF SPECIMEN Imaged Thinprep Pap Test w/ Reflex HPV - Evidence Specialist Cytologic Material: STATEMENT OF ADEQUACY - Specimen satisfactory for interpretation; endocervical/transformation zone component absent or insufficient GENERAL CATEGORIZATION: - Negative for intraepithelial lesion or malignancy INTERPRETATION: - Predominance of coccobacilli consistent with shift in vaginal mariel. Possible bacterial vaginosis SINGH Jimenez(ASCP) Report Electronically Reviewed and Signed Out By SINGH Jimenez(ASCP) 05/30/2024 09:42:54Specimen(s) Received: A: Imaged Thinprep Pap Test w/ Reflex HPV - Evidence Specialist Cytologic Material Clinical History: Last Menstrual Period: [...] determined by the Surgical Pathology Department at [facility] as part of an ongoing senior quality control technician program and in compliance with federally mandated [...] characteristics determined by the Surgical Pathology Department [facility]. It has not been cleared or approved by the U. S. Food and Drug Administration. Maggie Christianson MD LAB CYTOLOGY ORDERABL ES Final Result PATHOLOGY [address] [place] [address] from Last 3 Months or Most Recently Relevant to Health Maintenance Insurance [facility] Care Teams Him Clerk Relationship Specialty Start Date End Date No, Physician PCP - General 06/30/19
--- OUTSIDE RECORDS SUMMARY | 2024-12-18 12:35 | XMS_ITS | Clinical Summary ---
Author Organization [facility] [address] Address [address] [place] [address] Phone Care Team Providers Care Radiology Asst Name Role Phone No, Physician Primary Care Provider [phone] Allergies No known active allergies Medications albuterol [...] time in the past 12 m [facility], were you homeless or living in a jail (including now)? 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 Gender Identity Not on file Sexual Orientation [...] Estimated Date of Delivery 05/26/2024 - Present (12/18/2024) 12/18/2024 (set by Maggie Christianson MD on 05/26/2024 based on Last Menstrual Period on 03/13/2024 (Exact Date)) Dating Summary Based On NEETA GA Diff Last Menstrual Period on 03/13/2024 (Exact Date) 12/18/2024 Working Ultrasound on 05/26/2024 12/18/2024 Same GA:10w4d Vitals Pregravid Weight Height TWG (As of 12/18/2024) Pregrav id BMI 86.6 kg (191 lb) [...] 10/17/2020, 06/30/2019, Additional history exists Influenza Vaccine (Season Ended) 2025 09/12/2020, 06/20/2018, 06/22/2012, Additional history exists Cervical Cancer [...] last revised on 2019. Testing performed by: [facility], [address] [place] [address]., [id number] Blood 05/26/2024 2:18 PM CDT 05/26/2024 5:32 PM CDT Maggie Christianson MD LAB MICROBIOLOGY - NERAL ORDERABLES Final Result [address] Department [place] [address] * Pap with reflex to High Risk HPV and Genotyping (Cytology Component) (05/26/2024 11:36 AM CDT) Thin prep (Pap test) 05/26/2024 11:36 AM CDT 05/26/2024 11:36 AM CDT Narrative PATHOLOGY CH - 05/30/2024 9:42 AM CDT [facility] Department of Pathology [address] [place], [place] [id number] Final Report Note to Patients: This report [...] the details. Patient Name: BETH MEYER Address: [address] [place] [address]- Gender: F : 1995 (Age: 29) Service: Location: N : [id number] Hospital #: [id number] Patient Type: SPECIMEN Taken: 05/26/2024 Received: 05/26/2024 Accessioned:: 05/29/2024 Reported: 05/30/2024 Physician(s): MD Maggie Gomez MD Diagnosis: SOURCE OF SPECIMEN Imaged Thinprep Pap Test w/ Reflex HPV - Plant Tender Cytologic Material: STATEMENT OF ADEQUACY - Specimen satisfactory for interpretation; endocervical/transformation zone component absent or insufficient GENERAL CATEGORIZATION: - Negative for intraepithelial lesion or malignancy INTERPRETATION: - Predominance of coccobacilli consistent with shift in vaginal mariel. Possible bacterial vaginosis SINGH Jimenez(ASCP) Report Electronically Reviewed and Signed Out By SINGH Jimenez(ASCP) 05/30/2024 09:42:54Specimen(s) Received: A: Imaged Thinprep Pap Test w/ Reflex HPV - Plant Tender Cytologic Material Clinical History: Last Menstrual Period: [...] determined by the Surgical Pathology Department at [facility] as part of an ongoing bottle house quality control technician program and in compliance [...] characteristics determined by the Surgical Pathology Department [facility]. It has not been cleared or approved by the U. S. Food and Drug Administration. Maggie Christianson MD LAB CYTOLOGY ORDERABL ES Final Result PATHOLOGY [address] [place] [address] from Last 3 Months or Most Recently Relevant to Health Maintenance Insurance [facility] Care Teams Radiology Asst Relationship Specialty Start Date End Date No, Physician PCP - General 06/30/19
== END 2024-12-18 13:30 | disposition home or self-care (01) ==
LOC: ANHOBOP 10:47 → ANHOBPP 10:48
PROVIDERS: Visit Provider Advanced Practice Midwife
DX: O13.9 Gestational [pregnancy-induced] hypertension without significant proteinuria, unspecified trimester (principal); Z3A.00 Weeks of gestation of pregnancy not specified
CPT/HCPCS: 36415; 80053; 84550; 85025; 99199; A9270